=== PATIENT | male | born 1935 | race Caucasian/White ===

== ENCOUNTER 2018-07-05 10:43 | Emergency (ER) | payer OTHER ==
--- OUTSIDE RECORDS SUMMARY | 2018-07-05 10:46 | XMS REPORT | Continuity of Care Document ---
:1935 Author Organization Interface Problems Problem Status Onset Classification Date Comments Source Date Reported CERIVAL Active 07/01/19 [facility] LAMIETOMY, POST 16 SURGERY UNK Active 07/01/19 [facility] 16 COPD - Chronic Active Problem 07/08/2015 [facility] obstructive pulmonary disease Coronary artery Active Problem 07/08/2015 [facility] disease Glaucoma Resolved Problem 07/08/2015 [facility] H/O asbestosis Active Problem 07/08/2015 [facility] Heart attack Resolved Problem 07/08/2015 [facility] Hypertension Active Problem 07/08/2015 [facility] Impaired Active Problem 07/08/2015 [facility] hearing Neck pain Active Problem 07/08/2015 [facility] PVD - Active Problem 07/08/2015 [facility] Peripheral vascular disease Skin cancer Resolved Problem 07/08/2015 [facility] SPINAL Active [facility] STENOSIS, CERVICAL REGION OTHER Active [facility] SPONDYLOSIS WITH MYELOPATHY, CERVI Medications Medication Details Route Status Patient Ordering Order Source Instructions Provider Date Neutra-Phos 1 pkt, Route: Inactive PO, Drug Form: 2015 PDR/REC, Dosing Weight 70.9, kg, Daily, Start date: 07/05/15 9:00:00 CDT, Duration: 30 day, Stop date: 08/03/15 9:00:00 CDTNotes: (Same as: Neutra-Phos) Each 1.25 gm pkt has 250mg phosphorous. Mix w/2.5oz water and stir. latanoprost 0.05 1 drp, Route: No Longer MG/ML Ophthalmic LEFT EYE, QPM, Active 2015 [facility] Solution Drug form: SOLN, Start date: 07/04/15 17:00:00 CDT, Duration: 30 day, Stop date: 08/02/15 17:00:00 CDTNotes: Keep refrigerated. (Same as:Xalatan) dorzolamide / 1 drp, Route: No Longer Timolol LEFT EYE, BID, Active 2015 [facility] Drug form: SOLN, Start date: 07/04/15 9:00:00 CDT, Duration: 30 day, Stop date: 08/02/15 17:00:00 CDTNotes: Same as Cosopt Brimonidine 1 drp, Route: No Longer tartrate 2 MG/ML LEFT EYE, BID, Active 2015 [facility] Ophthalmic Drug form: Solution SOLN, Start date: 07/04/15 9:00:00 CDT, Duration: 30 day, Stop date: 08/02/15 17:00:00 CDTNotes: (Same As: Alphagan) Simvastatin 10 mg, 1 tab, No Longer Route: PO, Drug Active 2015 form: TAB, Bedtime, Dosing Weight 70.909, kg, Start date: 07/03/15 21:00:00 CDT, Duration: 30 day, Stop date: 08/01/15 21:00:00 CDTNotes: (Same as: Zocor) latanoprost 0.05 1 drp, LEFT Active MG/ML Ophthalmic EYE, QPM, 0 2015 Solution Refill(s) Brimonidine 1 drp, LEFT Active tartrate 2 MG/ML EYE, BID, 0 2015 Ophthalmic Refill(s) Solution dorzolamide / 1 drop, LEFT Active Timolol EYE, BID, 0 2015 Refill(s) Ancef + Sodium 1 gm, Route: No Longer Chloride 0.9% IV IVPB, Q8H, Active 2015 100 mL Dosing Weight 70.909, kg, Start date: 07/03/15 15:00:00 CDT, Duration: 30 day, Stop date: 08/02/15 9:00:00 CDTNotes: (Same As: Judy Soto) MEDICATION WASTE Product Size: 1000 mg Product Wasted: ___ mg 24 HR tramadol 25 mg, 0.5 tab, No Longer hydrochloride 100 Route: PO, Drug Active 2015 MG Extended form: TAB, Release Tablet Q6H-02, Start date: 07/03/15 14:00:00 CDT, Duration: 30 day, Stop date: 08/02/15 8:00:00 CDTNotes: Not to exceed 400mg/day. (Same As: Ultram) Dexamethasone 4 mg, 1 mL, No Longer Route: IVP, Active 2015 Drug form: INJ, Q6H, Dosing Weight 70.909, kg, Start date: 07/03/15 12:00:00 CDT, Duration: 30 day, Stop date: 08/02/15 6:00:00 CDTNotes: Concentration: 4mg/ml Labetalol 10 mg, Route: Inactive IV, ONCE, 2015 Dosing Weight 70.909, kg, Start date: 07/03/15 11:45:00 CDT, Stop date: 07/03/15 11:45:00 CDT famotidine (ANES) Route: IV, Drug Inactive form: INJ, 2015, Stop date: 07/03/15 11:23:00 CDT hydrocortisone Route: IV, Drug Inactive (ANES) form: [email or web address], Stop date: 07/03/15 9:38:00 CDT ondansetron Route: IV, Drug Inactive (ANES) form: [email or web address], Stop date: 07/03/15 9:38:00 CDT succinylcholine Route: IV, Drug Inactive (ANES) form: [email or web address], Stop date: 07/03/15 9:38:00 CDT hydromorphone Route: IV, Drug Inactive (ANES) form: [email or web address], Stop date: 07/03/15 9:33:00 CDT lidocaine (ANES) Route: IV, Drug Inactive form: [email or web address], Stop date: 07/03/15 9:33:00 CDT propofol (ANES) Route: IV, Drug Inactive form: [email or web address], Stop date: 07/03/15 9:33:00 CDT acetaminophen Route: IV, Drug Inactive MH (ANES) (ANES) form: [id number] Start date: 07/03/15 9:30:00 CDT, Stop date: 07/03/15 10:30:00 CDT ePHEDrine (ANES) Route: IV, Drug Inactive form: INJ, 2015 ONCE, Stop date: 07/03/15 9:04:00 CDT Famotidine 20 MG 20 mg, 1 tab, No Longer Oral Tablet Route: PO, Drug Active 2015 [Pepcid] form: TAB, Q12H, Dosing Weight 70.909, kg, Start date: 07/03/15 9:00:00 CDT, Duration: 30 day, Stop date: 08/01/15 21:00:00 CDTNotes: (Same as: Pepcid) Spiriva 18 microgram, 1 No Longer inhalation, Active 2015 Route: INHALATION, Drug form: CAP, Daily, Dosing Weight 70.909, kg, Start date: 07/03/15 9:00:00 CDT, Duration: 30 day, Stop date: 08/01/15 9:00:00 CDTNotes: (Same As: Spiriva). Lisinopril 10 mg, 1 tab, No Longer Route: PO, Drug Active 2015 form: TAB, Daily, Dosing Weight 70.909, kg, Start date: 07/03/15 9:00:00 CDT, Duration: 30 day, Stop date: 08/01/15 9:00:00 CDTNotes: (Same as: Prinivil, Zestril) Furosemide 40 MG 40 mg, 1 tab, No Longer Oral Tablet Route: PO, Drug Active 2015 form: TAB, Daily, Dosing Weight 70.909, kg, Start date: 07/03/15 9:00:00 CDT, Duration: 30 day, Stop date: 08/01/15 9:00:00 CDTNotes: (Same as: Lasix) May cause GI upset. Give with food or milk. albuterol (ANES) Route: IV, Drug Inactive form: AERO/A, 2015 ONCE, Stop date: 07/03/15 8:57:00 CDT remifentanil Route: IV, Drug Inactive (ANES) (ANES) form: [id number] Start date: 07/03/15 8:50:00 CDT, Stop date: 07/03/15 9:50:00 CDT phenylephrine Route: IV, Drug Inactive (ANES) form: INJ, 2015 ONCE, Stop date: 07/03/15 8:50:00 CDT albumin human Route: IV, Drug Inactive (ANES) (ANES) form: [id number] Start date: 07/03/15 8:48:00 CDT, Stop date: 07/03/15 9:48:00 CDT ceFAZolin (ANES) Route: IV, Drug Inactive (ANES) form: 2015 Start date: 07/03/15 8:30:00 CDT, Stop date: 07/03/15 9:30:00 CDT Ventolin HFA 90 2 puff, Route: No Longer mcg/inh INHALER, Drug Active 2015 [facility] inhalation Form: AERO/A, aerosol with Dosing Weight adapter 70.909, kg, Q4H, PRN as needed for wheezing, Start date: 07/03/15 8:12:00 CDT, Duration: 30 day, Stop date: 08/02/15 8:11:00 CDTNotes: Same as: Ventolin HFA WASTE: Aerosol - Return to Pharmacy Acetaminophen 325 2 tab, Route: No Longer MG / Hydrocodone PO, Drug Form: Active 2015 Bitartrate 5 MG TAB, Dosing Oral Tablet Weight 70.909, [[place] 5/325] kg, Q4H, PRN Pain Score 4-6, Start date: 07/03/15 8:10:00 CDT, Duration: 30 day, Stop date: 08/02/15 8:09:00 CDTNotes: (Same as: [place]on 325/5) Do not exceed 4gm/day of acetaminophen. Zofran 4 mg, 1 tab, No Longer Route: PO, Drug Active 2015 form: TAB, Q8H, Dosing Weight 70.909, kg, PRN Nausea, Start date: 07/03/15 8:09:00 CDT, Duration: 30 day, Stop date: 08/02/15 8:08:00 CDTNotes: (Same as: Zofran) Lactated Ringers Route: IV, Inactive Injection IV Total Volume: 2015 [facility] (ANES) (ANES) 1,000, Start date: 07/03/15 7:50:00 CDT, Stop date: 07/03/15 8:50:00 CDT Albuterol 0.833 3 mL, Route: Inactive MG/ML / NEB, Dosing 2015 [facility] Ipratropium Weight 70.909, [place] 0.167 kg, ONCE, STAT, MG/ML Inhalant Start date: Solution 07/03/15 7:07:00 CDT, Stop date: 07/03/15 7:07:00 CDT Glucose 50 MG/ML 1,000 mL, Rate: Inactive / Sodium Chloride 25 ml/hr, 2015 [facility] 0.154 MEQ/ML Infuse over: 40 Injectable hr, Route: IV, Solution Dosing Weight 70.909 kg, Total Volume: 1,000, Start date: 07/03/15 7:07:00 CDT, Duration: 30 day, Stop date: 08/02/15 7:06:00 CDT Sodium Chloride 1,000 mL, Rate: Inactive 0.154 MEQ/ML 25 ml/hr, 2015 [facility] Injectable Infuse over: 40 Solution hr, Route: IV, Dosing Weight 70.909 kg, Total Volume: 1,000, Start date: 07/03/15 7:07:00 CDT, Duration: 30 day, Stop date: 08/02/15 7:06:00 CDT Calcium Chloride 1,000 mL, Rate: Inactive 0.0014 MEQ/ML / 25 ml/hr, 2015 [facility] Potassium Infuse over: 40 Chloride 0.004 hr, Route: IV, MEQ/ML / Sodium Dosing Weight Chloride 0.103 70.909 kg, MEQ/ML / Sodium Total Volume: Lactate 0.028 1,000, Start MEQ/ML Injectable date: 07/03/15 Solution 7:07:00 CDT, Duration: 30 day, Stop date: 08/02/15 7:06:00 CDT Levalbuterol 0.63 mg, Route: No Longer NEB, Q20Min, Active 2015 [facility] Dosing Weight 70.909, kg, PRN Wheezing, Start date: 07/02/15 19:58:00 CDT, Duration: 4 doses or times, Stop date: Limited # of times 200 ACTUAT 2 puff, Route: No Longer Albuterol 0.09 INHALER, Dosing Active 2015 [facility] MG/ACTUAT Metered Weight 70.909, Dose Inhaler kg, Q5Min, PRN Wheezing, Start date: 07/02/15 19:58:00 CDT, Duration: 4 doses or times, Stop date: Limited # of times Ondansetron 4 mg, Route: No Longer IVP, ONCE, Active 2015 [facility] Dosing Weight 70.909, kg, PRN Nausea & Vomiting, Start date: 07/02/15 19:58:00 CDT Flumazenil 0.2 mg, Route: No Longer IVP, PRN, Active 2015 [facility] Dosing Weight 70.909, kg, PRN Benzodiazepine Reversal, Initial dose, Start date: 07/02/15 19:58:00 CDT, Duration: 30 day, Stop date: 08/01/15 19:57:00 CDT Hydromorphone 0.5 mg, Route: No Longer IVP, Q5Min, Active 2015 [facility] Dosing Weight 70.909, kg, PRN Pain Score 7-10, Start date: 07/02/15 19:58:00 CDT, Duration: 4 doses or times, Stop date: Limited # of times Fentanyl 50 microgram, No Longer Route: IVP, Active 2015 [facility] Q5Min, Dosing Weight 70.909, kg, PRN Pain Score 7-10, Start date: 07/02/15 19:58:00 CDT, Duration: 2 doses or times, Stop date: Limited # of times Oxycodone 10 mg, Route: No Longer PO, Drug form: Active 2015 [facility] TAB, Q4H, Dosing Weight 70.909, kg, PRN Pain Score 7-10, Start date: 07/02/15 19:58:00 CDT, Duration: 30 day, Stop date: 08/01/15 19:57:00 CDT Acetaminophen 1,000 mg, No Longer Route: IVPB, Active 2015 [facility] Drug form: INJ, ONCE, Dosing Weight 70.909, kg, PRN Pain Score 1-3, Start date: 07/02/15 19:58:00 CDT, Duration: 1 doses or times, Stop date: Limited # of times Sodium Chloride 1,000 mL, Rate: No Longer 0.154 MEQ/ML 125 ml/hr, Active 2015 [facility] Injectable Infuse over: 8 Solution hr, Route: IV, Dosing Weight 70.909 kg, Total Volume: 1,000, Start date: 07/02/15 19:58:00 CDT, Duration: 30 day, Stop date: 08/01/15 19:57:00 CDT Glucose 50 MG/ML 1,000 mL, Rate: No Longer / Sodium Chloride 125 ml/hr, Active 2015 [facility] 0.154 MEQ/ML Infuse over: 8 Injectable hr, Route: IV, Solution Dosing Weight 70.909 kg, Total Volume: 1,000, Start date: 07/02/15 19:58:00 CDT, Duration: 30 day, Stop date: 08/01/15 19:57:00 CDT Calcium Chloride 1,000 mL, Rate: No Longer 0.0014 MEQ/ML / 125 ml/hr, Active 2015 [facility] Potassium Infuse over: 8 Chloride 0.004 hr, Route: IV, MEQ/ML / Sodium Dosing Weight Chloride 0.103 70.909 kg, MEQ/ML / Sodium Total Volume: Lactate 0.028 1,000, Start MEQ/ML Injectable date: 07/02/15 Solution 19:58:00 CDT, Duration: 30 day, Stop date: 08/01/15 19:57:00 CDT Naloxone 0.4 mg, Route: No Longer IVP, Q2MIN, Active 2015 Dosing Weight 70.909, kg, PRN Narcotic Reversal, Start date: 07/02/15 19:58:00 CDT, Duration: 8 doses or times, Stop date: Limited # of times Ventolin HFA 90 2 puff, Active mcg/inh INHALER, Q4H, 2015 inhalation PRN wheezing, aerosol with coughing, or adapter shortness of breath, # 8 gm, 1 Refill(s) lisinopril 10 mg 10 mg=1 tab, Active oral tablet PO, Daily, # 30 2015 tab, 0 Refill(s) Spiriva 18 microgram, Active INHALATION, 2015 Daily, # 30 ea, 0 Refill(s) Diclofenac 50 mg, PO, PRN, No Longer 0 Refill(s) Active 2015 Furosemide 40 MG 40 mg=1 tab, Active Oral Tablet PO, Daily, # 30 2015 tab, 0 Refill(s) simvastatin 10 mg 10 mg=1 tab, Active oral tablet PO, Bedtime, # 2015 30 tab, 0 Refill(s) clopidogrel 75 mg 75 mg=1 tab, No Longer oral tablet PO, Daily, # 30 Active 2015 [facility] tab, 0 Refill(s) Allergies, Adverse Reactions, Alerts Substance Category Reaction Severity Reaction Status Date Comments Source type Reported Immunizations Immunization Date Given Site Status Last Updated Comments Source Results Order Name Results Value Reference Date Interpretation Comments Source Range CHEM PANEL Phosphorus 2.2 mg/dL 2.5 - 4.5 07/03 [facility] CHEM PANEL Magnesium 1.8 mg/dL 1.8 - 2.4 07/03 Lvl [facility] CHEM PANEL eGFR 83 07/03 Result Comment: The eGFR is calculated using the CKD-EPI formula. In most young, healthy individuals the eGFR will be >90 mL/ min/1.73m2. The eGFR declines with age. An eGFR of 60-89 may be normal in mL/min/1. some populations, particularly the elderly, for whom the CKD-EPI formula has not been extensively validated. Use of the eGFR is not recommended in the following populations: [facility] 3m2 Individuals with unstable creatinine concentrations, including patients and those with serious co-morbid conditions. Patients with extremes in muscle mass or diet. The data above are obtained from the National Kidney Disease Education Program (NKDEP) which additionally recommends that when the eGFR is used in patients with extremes of body mass index for purposes of drug dosing, the eGFR should be multiplied by the estimated BMI. CHEM PANEL Calcium Lvl 7.9 mg/dL 8.5 - 10.5 07/03 [facility] CHEM PANEL CO2 26 meq/L 24 - 32 07/03 [facility] CHEM PANEL Glucose Lvl 136 mg/dL 70 - 99 07/03 /2015 [facility] CHEM PANEL BUN 13 mg/dL 7 - 22 07/03 /2015 [facility] CHEM PANEL Potassium 4.1 meq/L 3.5 - 5.1 07/03 [facility] Lvl /2015 [facility] CHEM PANEL Chloride Lvl 96 meq/L 95 - 109 07/03 /2015 [facility] CHEM PANEL Sodium Lvl 132 meq/L 135 - 145 07/03 /2015 [facility] CHEM PANEL Creatinine 0.83 mg/dL 0.50 - 07/03 [facility] Lvl 1.40 /2015 [facility] CHEM PANEL AGAP 14.1 meq/L 10.0 - 07/03 MH 20.0 /2015 [facility] HEMATOLOGY Lymphocytes 0.7 K/CMM 1.0 - 5.5 07/03 MH # /2015 [facility] HEMATOLOGY Segs-Bands # 11.6 K/CMM 1.5 - 8.1 07/03 [facility] HEMATOLOGY Monocytes 2.7 % 2.0 - 12.0 07/03 /2015 [facility] HEMATOLOGY Lymphocytes 5.4 % 20.0 - 07/03 MH 40.0 [facility] HEMATOLOGY Monocytes # 0.3 K/CMM 0.0 - 0.8 07/03 [facility] HEMATOLOGY Basophils 0.1 % 0.0 - 1.0 07/03 /2015 [facility] HEMATOLOGY Segs 91.8 % 45.0 - 07/03 MH 75.0 [facility] HEMATOLOGY Platelet 172 K/CMM 133 - 450 07/03 [facility] HEMATOLOGY MCHC 33.4 g/dL 32.0 - 07/03 MH 36.0 [facility] HEMATOLOGY MPV 9.8 fL 7.4 - 10.4 07/03 [facility] HEMATOLOGY MCV 92.4 fL 80.0 - 07/03 MH 94.0 [facility] HEMATOLOGY RDW 13.5 % 11.5 - 07/03 MH 14.5 /2015 [facility] HEMATOLOGY Hgb 11.7 g/dL 14.0 - 07/03 MH 18.0 [facility] HEMATOLOGY MCH 30.9 pg 27.0 - 07/03 MH 31.0 /2015 [facility] HEMATOLOGY RBC 3.79 M/CMM 4.70 - 07/03 MH 6.10 /2015 [facility] HEMATOLOGY Hct 35.0 % 42.0 - 07/03 MH 54.0 /2015 [facility] HEMATOLOGY WBC 12.6 K/CMM 3.7 - 10.4 07/03 [facility] Chest Chest 1view Study: Chest 1view DX 07/03 - 1view DX - [facility] Clinical Indication: Tube placement/removal/reposition Read by: Hossein Lockett MD Dictated Date/time: 07/04/15 07:47 Electronically Signed by: Hossein Lockett MD 07/04/15 07:48 FINAL REPORT Comparison: None FINDINGS: Changes of median sternotomy and coronary artery bypass graft are seen. Cardiac silhouette is normal in size. Aortic arch calcification is seen. Numerous calcified pleural plaques throughout b ilateral lungs are noted. There is no pleural effusion or pneumothorax. 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 IMPRESSION: No acute cardiopulmonary disease. Numerous calcified pleural plaques throughout the bilateral lungs. SL: [id number] BACTERIAL MRSA by PCR Negative 07/02 - [facility] (07/03/15 12:59 PM) Vital Signs Vital Sign Value Date Comments Source Respitory Rate 16 07/05/2015 [facility] Heart Rate 77 07/05/2015 [facility] Temperature Oral (F) 98.3 F 07/05/2015 [facility] Systolic (mm Hg) 145 07/05/2015 [facility] Diastolic (mm Hg) 86 07/05/2015 [facility] Respitory Rate 18 07/05/2015 [facility] Heart Rate 76 07/05/2015 [facility] Systolic (mm Hg) 163 07/05/2015 [facility] Diastolic (mm Hg) 82 07/05/2015 [facility] Temperature Oral (F) 97.7 F 07/05/2015 [facility] Heart Rate 85 07/05/2015 [facility] Temperature Oral (F) 97.2 F 07/05/2015 [facility] Systolic (mm Hg) 160 07/05/2015 [facility] Diastolic (mm Hg) 84 07/05/2015 [facility] Respitory Rate 16 07/05/2015 [facility] Weight 70.9 07/03/2015 [facility] Height 177.8 cm 07/02/2015 [facility] BMI Calculated 22.43 07/02/2015 [facility] Weight 70.909 07/02/2015 [facility] Encounters Location Location Encounter Encounter Reason Attending ADM DC Status Source Details Type Number For Provider Date Date Visit [facility] OBS [id number] Cristopher 07/02 07/04 Wesley Richter /2015 [facility] Patient t Hospital Procedures Procedure Code Date Perfomer Comments Source Appendectomy [id number] [facility] Cataract extraction [id number] [facility] and insertion of intraocular lens Coronary [id number] [facility] arteriogram Coronary artery [id number] [facility] bypass grafts x 4 Femoral artery [id number] [facility] bypass Tonsillectomy [id number] [facility]
--- OUTSIDE RECORDS SUMMARY | 2018-07-05 10:47 | XMS REPORT | Summary of Care ---
:1935 Author Organization [facility] Address [address], [place] [address]- Encounter HQ Lasha_elsie(FIN) [id number] Date(s): 07/03/15 - 07/05/15 [facility] [address] [place] [address]- [phone] Discharge Disposition: DC/DISC TO REHAB Attending Physician: Cristopher Lowe MD Admitting Physician: Cristopher Lowe MD Referring Physician: Cristopher Lowe MD Vital Signs Most recent to oldest 1 2 3 [Reference Range]: Height 177.8 cm (07/02/15 12:16 PM) Temperature Oral [96.4-99.1 98.3 DegF 97.7 DegF 97.2 DegF DegF] (07/05/15 8:26 AM) (07/05/15 5:50 AM) (07/04/15 11:54 PM) Blood Pressure [90-140/60-90 145/86 mmHg 163/82 mmHg 160/84 mmHg mmHg] *HI* *HI* *HI* (07/05/15 8:26 AM) (07/05/15 5:50 AM) (07/04/15 11:54 PM) Respiratory Rate [14-20 16 BRMIN 18 BRMIN 16 BRMIN BRMIN] (07/05/15 8:26 AM) (07/05/15 6:59 AM) (07/04/15 11:54 PM) Peripheral Pulse Rate 77 bpm 76 bpm 85 bpm [60-100 bpm] (07/05/15 8:26 AM) (07/05/15 5:50 AM) (07/04/15 11:54 PM) Weight 70.9 kg 70.909 kg (07/03/15 2:00 PM) (07/02/15 12:16 PM) Body Mass Index 22.43 m2 (07/02/15 12:16 PM) Problem List Condition Effective Dates Status Health Status Informant Back problem(Confirmed) Resolved COPD - Chronic obstructive pulmonary Active disease(Confirmed) Coronary artery disease(Confirmed) Active Glaucoma(Confirmed) Resolved H/O asbestosis(Confirmed) Active Heart attack(Confirmed) Resolved Hypertension(Confirmed) Active Impaired hearing(Confirmed) Active Neck pain(Confirmed) Active PVD - Peripheral vascular Active disease(Confirmed) Skin cancer(Confirmed) Resolved Allergies, Adverse Reactions, Alerts Substance Reaction Severity Status NKDA Active Medications acetaminophen (ANES) (ANES) Route: IV, Drug form: INJ, Start date: 07/03/15 9:30:00 CDT, Stop date: 10:30:00 CDT Start Date: 07/03/15 Stop Date: 07/03/15 Status: Completedalbumin human (ANES) (ANES) Route: IV, Drug form: INJ, Start date: 07/03/15 8:48:00 CDT, Stop date: 9:48:00 CDT Start Date: 07/03/15 Stop Date: 07/03/15 Status: Completedalbuterol (ANES) Route: IV, Drug form: AERO/A, ONCE, Stop date: 07/03/15 8:57:00 CDT Start Date: 07/03/15 Stop Date: 07/03/15 Status: Completedalbuterol-ipratropium 2.5-0.5 mg inhalation solution 3 mL, Route: NEB, Dosing Weight 70.909, kg, ONCE, STAT, Start date: 07/03/15 7: 07:00 CDT, Stop date:07/03/15 7:07:00 CDT Start Date: 07/03/15 Stop Date: 07/03/15 Status: DiscontinuedAncef + Sodium Chloride 0.9% IV 100 mL 1 gm, Route: IVPB, Q8H, Dosing Weight 70.909, kg, Start date: 07/03/15 15:00:00 CDT, Duration: 30 day, Stop date: 08/02/15 9:00:00 CDT Notes: (Same As: AncefPaulfzol) MEDICATION WASTE Product Size: 1000 mgProduct Wasted: ___ mg Start Date: 07/03/15 Stop Date: 07/05/15 Status: DiscontinuedANES acetaminophen 1,000 mg, Route: IVPB, Drug form: INJ, ONCE, Dosing Weight 70.909, kg, PRN Pain Score 1-3, Start date: 07/02/15 19:58:00 CDT, Duration: 1 doses or times, Stop date: Limited # of times Start Date: 07/02/15 Stop Date: 07/03/15 Status: DiscontinuedANES albuterol 90 mcg/inh inhalation aerosol 2 puff, Route: INHALER, Dosing Weight 70.909, kg, Q5Min, PRN Wheezing, Start date: 07/02/15 19:58:00CDT, Duration: 4 doses or times, Stop date: Limited # of times Start Date: 07/02/15 Stop Date: 07/03/15 Status: DiscontinuedANES albuterol 90 mcg/inh inhalation aerosol 2 puff, Route: INHALER, Dosing Weight 70.909, kg, ONCE, Start date: 07/02/15 19: 58:00 CDT, Stop date: 07/02/15 19:58:00 CDT, On arrival to PACU Start Date: 07/02/15 Stop Date: 07/03/15 Status: DiscontinuedANES fentaNYL 50 microgram, Route: IVP, Q5Min, Dosing Weight 70.909, kg, PRN Pain Score 7-10, Start date: 07/01/1618:58:00 CDT, Duration: 2 doses or times, Stop date: Limited # of times Start Date: 07/02/15 Stop Date: 07/03/15 Status: DiscontinuedANES fentaNYL 25 microgram, Route: IVP, Q5Min, Dosing Weight 70.909, kg, PRN Pain Score 4-6, Start date: 07/02/15 19:58:00 CDT, Duration: 4 doses or times, Stop date: Limited # of times Start Date: 07/02/15 Stop Date: 07/03/15 Status: DiscontinuedANES flumazenil 0.2 mg, Route: IVP, PRN, Dosing Weight 70.909, kg, PRN Benzodiazepine Reversal, Initial dose, Start date: 07/02/15 19:58:00 CDT, Duration: 30 day, Stop date: 19:57:00 CDT Start Date: 07/02/15 Stop Date: 07/03/15 Status: DiscontinuedANES HYDROmorphone 0.5 mg, Route: IVP, Q5Min, Dosing Weight 70.909, kg, PRN Pain Score 7-10, Start date: 07/02/15 19:58:00 CDT, Duration: 4 doses or times, Stop date: Limited # of times Start Date: 07/02/15 Stop Date: 07/03/15 Status: DiscontinuedANES levalbuterol 0.63 mg, Route: NEB, Q20Min, Dosing Weight 70.909, kg, PRN Wheezing, Start date : 07/02/15 19:58:00 CDT, Duration: 4 doses or times, Stop date: Limited # of times Start Date: 07/02/15 Stop Date: 07/03/15 Status: DiscontinuedANES naloxone 0.4 mg, Route: IVP, Q2MIN, Dosing Weight 70.909, kg, PRN Narcotic Reversal, Start date: 07/02/15 19:58:00 CDT, Duration: 8 doses or times, Stop date: Limited # of times Start Date: 07/02/15 Stop Date: 07/03/15 Status: DiscontinuedANES ondansetron 4 mg, Route: IVP, ONCE, Dosing Weight 70.909, kg, PRN Nausea & Vomiting, Start date: 07/02/15 19:58:00 CDT Start Date: 07/02/15 Stop Date: 07/03/15 Status: DiscontinuedANES oxyCODONE 10 mg, Route: PO, Drug form: TAB, Q4H, Dosing Weight 70.909, kg, PRN Pain Score 7-10, Start date: 07/02/15 19:58:00 CDT, Duration: 30 day, Stop date: 08/01/15 19:57:00 CDT Start Date: 07/02/15 Stop Date: 07/03/15 Status: DiscontinuedANES oxyCODONE 5 mg, Route: PO, Drug form: TAB, Q4H, Dosing Weight 70.909, kg, PRN Pain Score 4 -6, Start date: 07/02/15 19:58:00 CDT, Duration: 30 day, Stop date: 08/01/15 19: 57:00 CDT Start Date: 07/02/15 Stop Date: 07/03/15 Status: Discontinuedbrimonidine ophthalmic 0.2% solution 1 drp, LEFT EYE, BID, 0 Refill(s) Start Date: 07/03/15 Status: Orderedbrimonidine ophthalmic 0.2% solution 1 drp, Route: LEFT EYE, BID, Drug form: SOLN, Start date: 07/04/15 9:00:00 CDT, Duration: 30 day, Stop date: 08/02/15 17:00:00 CDT Notes: (Same As: Alphagan) Start Date: 07/04/15 Stop Date: 07/05/15 Status: DiscontinuedceFAZolin (ANES) (ANES) Route: IV, Drug form: INJ, Start date: 07/03/15 8:30:00 CDT, Stop date: 9:30:00 CDT Start Date: 07/03/15 Stop Date: 07/03/15 Status: Completedclopidogrel 75 mg oral tablet 75 mg=1 tab, PO, Daily, # 30 tab, 0 Refill(s) Start Date: 07/02/15 Stop Date: 07/05/15 Status: Discontinueddexamethasone 4 mg, 1 mL, Route: IVP, Drug form: INJ, Q6H, Dosing Weight 70.909, kg, Start date: 07/03/15 12:00:00CDT, Duration: 30 day, Stop date: 08/02/15 6:00:00 CDT Notes: Concentration: 4mg/ml Start Date: 07/03/15 Stop Date: 07/05/15 Status: DiscontinuedDextrose 5% with 0.9% NaCl IV 1000 mL 1,000 mL, Rate: 25 ml/hr, Infuse over: 40 hr, Route: IV, Dosing Weight 70.909 kg , Total Volume: 1,000, Start date: 07/03/15 7:07:00 CDT, Duration: 30 day, Stop date: 08/02/15 7:06:00 CDT Start Date: 07/03/15 Stop Date: 07/03/15 Status: DiscontinuedDextrose 5% with 0.9% NaCl IV 1000 mL 1,000 mL, Rate: 125 ml/hr, Infuse over: 8 hr, Route: IV, Dosing Weight 70.909 kg , Total Volume: 1,000, Start date: 07/02/15 19:58:00 CDT, Duration: 30 day, Stop date: 08/01/15 19:57:00 CDT Start Date: 07/02/15 Stop Date: 07/03/15 Status: Discontinueddiclofenac 50 mg, PO, PRN, 0 Refill(s) Start Date: 07/02/15 Stop Date: 07/05/15 Status: Discontinueddorzolamide-timolol ophthalmic 1 drp, Route: LEFT EYE, BID, Drug form: SOLN, Start date: 07/04/15 9:00:00 CDT, Duration: 30 day, Stop date: 08/02/15 17:00:00 CDT Notes: Same as Cosopt Start Date: 07/04/15 Stop Date: 07/05/15 Status: Discontinueddorzolamide-timolol ophthalmic 1 drop, LEFT EYE, BID, 0 Refill(s) Start Date: 07/03/15 Status: OrderedePHEDrine (ANES) Route: IV, Drug form: INJ, ONCE, Stop date: 07/03/15 9:04:00 CDT Start Date: 07/03/15 Stop Date: 07/03/15 Status: Completedfamotidine (ANES) Route: IV, Drug form: INJ, ONCE, Stop date: 07/03/15 11:23:00 CDT Start Date: 07/03/15 Stop Date: 07/03/15 Status: Completedfurosemide 40 mg oral tablet 40 mg, 1 tab, Route: PO, Drug form: TAB, Daily, Dosing Weight 70.909, kg, Start date: 07/03/15 9:00:00 CDT, Duration: 30 day, Stop date: 08/01/15 9:00:00 CDT Notes: (Same as: Lasix) May cause GI upset. Give with food or milk. Start Date: 07/03/15 Stop Date: 07/05/15 Status: Discontinuedfurosemide 40 mg oral tablet 40 mg=1 tab, PO, Daily, # 30 tab, 0 Refill(s) Start Date: 07/02/15 Status: Orderedhydrocortisone (ANES) Route: IV, Drug form: INJ, ONCE, Stop date: 07/03/15 9:38:00 CDT Start Date: 07/03/15 Stop Date: 07/03/15 Status: Completedhydromorphone (ANES) Route: IV, Drug form: INJ, ONCE, Stop date: 07/03/15 9:33:00 CDT Start Date: 07/03/15 Stop Date: 07/03/15 Status: Completedlabetalol 10 mg, Route: IV, ONCE, Dosing Weight 70.909, kg, Start date: 07/03/15 11:45:00 CDT, Stop date: 07/03/15 11:45:00 CDT Start Date: 07/03/15 Stop Date: 07/03/15 Status: CompletedLactated Ringers Injection IV (ANES) (ANES) Route: IV, Total Volume: 1,000, Start date: 07/03/15 7:50:00 CDT, Stop date: 8:50:00 CDT Start Date: 07/03/15 Stop Date: 07/03/15 Status: CompletedLactated Ringers Injection IV 1000 mL 1,000 mL, Rate: 25 ml/hr, Infuse over: 40 hr, Route: IV, Dosing Weight 70.909 kg , Total Volume: 1,000, Start date: 07/03/15 7:07:00 CDT, Duration: 30 day, Stop date: 08/02/15 7:06:00 CDT Start Date: 07/03/15 Stop Date: 07/03/15 Status: DiscontinuedLactated Ringers Injection IV 1000 mL 1,000 mL, Rate: 125 ml/hr, Infuse over: 8 hr, Route: IV, Dosing Weight 70.909 kg , Total Volume: 1,000, Start date: 07/02/15 19:58:00 CDT, Duration: 30 day, Stop date: 08/01/15 19:57:00 CDT Start Date: 07/02/15 Stop Date: 07/03/15 Status: Discontinuedlatanoprost ophthalmic 0.005% solution 1 drp, LEFT EYE, QPM, 0 Refill(s) Start Date: 07/03/15 Status: Orderedlatanoprost ophthalmic 0.005% solution 1 drp, Route: LEFT EYE, QPM, Drug form: SOLN, Start date: 07/04/15 17:00:00 CDT , Duration: 30 day, Stop date: 08/02/15 17:00:00 CDT Notes: Keep refrigerated. (Same as:Xalatan) Start Date: 07/04/15 Stop Date: 07/05/15 Status: Discontinuedlidocaine (ANES) Route: IV, Drug form: INJ, ONCE, Stop date: 07/03/15 9:33:00 CDT Start Date: 07/03/15 Stop Date: 07/03/15 Status: Completedlisinopril 10 mg, 1 tab, Route: PO, Drug form: TAB, Daily, Dosing Weight 70.909, kg, Start date: 07/03/15 9:00:00 CDT, Duration: 30 day, Stop date: 08/01/15 9:00:00 CDT Notes: (Same as: Prinivil, Zestril) Start Date: 07/03/15 Stop Date: 07/05/15 Status: Discontinuedlisinopril 10 mg oral tablet 10 mg=1 tab, PO, Daily, # 30 tab, 0 Refill(s) Start Date: 07/02/15 Status: OrderedNeutra-Phos 1 pkt, Route: PO, Drug Form: PDR/REC, Dosing Weight 70.9, kg, Daily, Start date : 07/05/15 9:00:00 CDT, Duration: 30 day, Stop date: 08/03/15 9:00:00 CDT Notes: (Same as: Neutra-Phos) Each 1.25 gm pkt has 250mg phosphorous. Mix w/ 2.5oz water and stir. Start Date: 07/05/15 Stop Date: 07/05/15 Status: DiscontinuedNorco 5/325 oral tablet 2 tab, Route: PO, Drug Form: TAB, Dosing Weight 70.909, kg, Q4H, PRN Pain Score 4-6, Start date: 07/03/15 8:10:00 CDT, Duration: 30 day, Stop date: 08/02/15 8: 09:00 CDT Notes: (Same as: [place] 325/5) Do not exceed 4gm/day of acetaminophen. Start Date: 07/03/15 Stop Date: 07/05/15 Status: Discontinuedondansetron (ANES) Route: IV, Drug form: INJ, ONCE, Stop date: 07/03/15 9:38:00 CDT Start Date: 07/03/15 Stop Date: 07/03/15 Status: CompletedPepcid 20 mg oral tablet 20 mg, 1 tab, Route: PO, Drug form: TAB, Q12H, Dosing Weight 70.909, kg, Start date: 07/03/15 9:00:00 CDT, Duration: 30 day, Stop date: 08/01/15 21:00:00 CDT Notes: (Same as: Pepcid) Start Date: 07/03/15 Stop Date: 07/05/15 Status: Discontinuedphenylephrine (ANES) Route: IV, Drug form: INJ, ONCE, Stop date: 07/03/15 8:50:00 CDT Start Date: 07/03/15 Stop Date: 07/03/15 Status: Completedpropofol (ANES) Route: IV, Drug form: INJ, ONCE, Stop date: 07/03/15 9:33:00 CDT Start Date: 07/03/15 Stop Date: 07/03/15 Status: Completedremifentanil (ANES) (ANES) Route: IV, Drug form: INJ, Start date: 07/03/15 8:50:00 CDT, Stop date: 9:50:00 CDT Start Date: 07/03/15 Stop Date: 07/03/15 Status: Completedsimvastatin 10 mg, 1 tab, Route: PO, Drug form: TAB, Bedtime, Dosing Weight 70.909, kg, Start date: 07/03/15 21:00:00 CDT, Duration: 30 day, Stop date: 08/01/15 21:00: 00 CDT Notes: (Same as: Zocor) Start Date: 07/03/15 Stop Date: 07/05/15 Status: Discontinuedsimvastatin 10 mg oral tablet 10 mg=1 tab, PO, Bedtime, # 30 tab, 0 Refill(s) Start Date: 07/02/15 Status: OrderedSodium Chloride 0.9% IV 1000 mL 1,000 mL, Rate: 25 ml/hr, Infuse over: 40 hr, Route: IV, Dosing Weight 70.909 kg , Total Volume: 1,000, Start date: 07/03/15 7:07:00 CDT, Duration: 30 day, Stop date: 08/02/15 7:06:00 CDT Start Date: 07/03/15 Stop Date: 07/03/15 Status: DiscontinuedSodium Chloride 0.9% IV 1000 mL 1,000 mL, Rate: 125 ml/hr, Infuse over: 8 hr, Route: IV, Dosing Weight 70.909 kg , Total Volume: 1,000, Start date: 07/02/15 19:58:00 CDT, Duration: 30 day, Stop date: 08/01/15 19:57:00 CDT Start Date: 07/02/15 Stop Date: 07/03/15 Status: DiscontinuedSpiriva 18 microgram, 1 inhalation, Route: INHALATION, Drug form: CAP, Daily, Dosing Weight 70.909, kg, Start date: 07/03/15 9:00:00 CDT, Duration: 30 day, Stop date : 08/01/15 9:00:00 CDT Notes: (Same As: Spiriva). Start Date: 07/03/15 Stop Date: 07/05/15 Status: DiscontinuedSpiriva 18 microgram, INHALATION, Daily, # 30 ea, 0 Refill(s) Start Date: 07/02/15 Status: Orderedsuccinylcholine (ANES) Route: IV, Drug form: INJ, ONCE, Stop date: 07/03/15 9:38:00 CDT Start Date: 07/03/15 Stop Date: 07/03/15 Status: Completedtramadol 25 mg, 0.5 tab, Route: PO, Drug form: TAB, Q6H-02, Start date: 07/03/15 14:00: 00 CDT, Duration: 30 day, Stop date: 08/02/15 8:00:00 CDT Notes: Not to exceed 400mg/day. (Same As: Ultram) Start Date: 07/03/15 Stop Date: 07/05/15 Status: DiscontinuedVentolin HFA 90 mcg/inh inhalation aerosol with adapter 2 puff, INHALER, Q4H, PRN wheezing, coughing, or shortness of breath, # 8 gm, 1 Refill(s) Start Date: 07/02/15 Status: OrderedVentolin HFA 90 mcg/inh inhalation aerosol with adapter 2 puff, Route: INHALER, Drug Form: AERO/A, Dosing Weight 70.909, kg, Q4H, PRN as needed for wheezing, Start date: 07/03/15 8:12:00 CDT, Duration: 30 day, Stop date: 08/02/15 8:11:00 CDT Notes: Same as: Ventolin HFAWASTE: Aerosol - Return to Pharmacy Start Date: 07/03/15 Stop Date: 07/05/15 Status: DiscontinuedZofran 4 mg, 1 tab, Route: PO, Drug form: TAB, Q8H, Dosing Weight 70.909, kg, PRN Nausea, Start date: 07/03/15 8:09:00 CDT, Duration: 30 day, Stop date: 08/02/15 8:08:00 CDT Notes: (Same as: Zofran) Start Date: 07/03/15 Stop Date: 07/05/15 Status: Discontinued Results ELECTROLYTES Most recent to oldest [Reference Range]: 1 Sodium Lvl [135-145 mEq/L] 132 mEq/L *LOW* (07/04/15 5:55 AM) Potassium Lvl [3.5-5.1 mEq/L] 4.1 mEq/L (07/04/15 5:55 AM) Chloride Lvl [95-109 mEq/L] 96 mEq/L (07/04/15 5:55 AM) CO2 [24-32 mEq/L] 26 mEq/L (07/04/15 5:55 AM) AGAP [10.0-20.0 mEq/L] 14.1 mEq/L (07/04/15 5:55 AM) CHEM PANEL Most recent to oldest [Reference Range]: 1 Creatinine Lvl [0.50-1.40 mg/dL] 0.83 mg/dL (07/04/15 5:55 AM) eGFR 83 mL/min/1.73m2 1 *NA* (07/04/15 5:55 AM) BUN [7-22 mg/dL] 13 mg/dL (07/04/15 5:55 AM) Glucose Lvl [70-99 mg/dL] 136 mg/dL *HI* (07/04/15 5:55 AM) Calcium Lvl [8.5-10.5 mg/dL] 7.9 mg/dL *LOW* (07/04/15 5:55 AM) Phosphorus [2.5-4.5 mg/dL] 2.2 mg/dL *LOW* (07/04/15 5:55 AM) Magnesium Lvl [1.8-2.4 mg/dL] 1.8 mg/dL (07/04/15 5:55 AM) 1Result Comment: The eGFR is calculated using the CKD-EPI formula. In most young , healthy individualsthe eGFR will be >90 mL/min/1.73m2. The eGFR declines with age. An eGFR of 60-89 may be normal in some populations, particularly the elderly, for whom the CKD-EPI formula has not been extensively validated. Use of the eGFR is not recommended in the following populations: Individuals with unstable creatinine concentrations, including patients and those with serious co-morbid conditions. Patients with extremes in muscle mass or diet. The data above are obtained from the National Kidney Disease Education Program ( NKDEP) which additionally recommends that when the eGFR is used in patients with extremes of body mass index for purposesof drug dosing, the eGFR should be multiplied by the estimated BMI.HEMATOLOGY Most recent to oldest [Reference Range]: 1 WBC [3.7-10.4 K/CMM] 12.6 K/CMM *HI* (07/04/15 5:55 AM) RBC [4.70-6.10 M/CMM] 3.79 M/CMM *LOW* (07/04/15 5:55 AM) Hgb [14.0-18.0 g/dL] 11.7 g/dL *LOW* (07/04/15 5:55 AM) Hct [42.0-54.0 %] 35.0 % *LOW* (07/04/15 5:55 AM) MCV [80.0-94.0 fL] 92.4 fL (07/04/15 5:55 AM) MCH [27.0-31.0 pg] 30.9 pg (07/04/15 5:55 AM) MCHC [32.0-36.0 g/dL] 33.4 g/dL (07/04/15 5:55 AM) RDW [11.5-14.5 %] 13.5 % (07/04/15 5:55 AM) Platelet [133-450 K/CMM] 172 K/CMM (07/04/15 5:55 AM) MPV [7.4-10.4 fL] 9.8 fL (07/04/15 5:55 AM) Segs [45.0-75.0 %] 91.8 % *HI* (07/04/15 5:55 AM) Lymphocytes [20.0-40.0 %] 5.4 % *LOW* (07/04/15 5:55 AM) Monocytes [2.0-12.0 %] 2.7 % (07/04/15 5:55 AM) Basophils [0.0-1.0 %] 0.1 % (07/04/15 5:55 AM) Segs-Bands # [1.5-8.1 K/CMM] 11.6 K/CMM *HI* (07/04/15 5:55 AM) Lymphocytes # [1.0-5.5 K/CMM] 0.7 K/CMM *LOW* (07/04/15 5:55 AM) Monocytes # [0.0-0.8 K/CMM] 0.3 K/CMM (07/04/15 5:55 AM) BACTERIAL - SEROLOGY Most recent to oldest [Reference Range]: 1 MRSA by PCR Negative (07/03/15 12:59 PM) Immunizations No data available for this section Procedures Procedure Date Related Diagnosis Body Site Appendectomy Cataract extraction and insertion of intraocular lens Coronary arteriogram Coronary artery bypass grafts x 4 Femoral artery bypass Tonsillectomy Social History Social History Type Response Alcohol Current, Previous treatment: None. Smoking Status Current every day smoker; Type: Cigarettes; Tobacco use per day : 1; Ready to change: No; Concerns about tobacco use in household: No; Exposure to Tobacco Smoke None; Cigarette Smoking Last 365 Days Yes; Reg Smoking Cessation Counseling No Assessment and Plan Extracted from: Title: Clinical Document Author: Irineo Jett DO Date: 07/03/15 Chief complaint: post op cervicle spine decompression HPI: 80y.o male presents to ICU s/p cervicle spine decompression. He has been extubated and is on room air. Hemodynamically stable. has a history of abestosis and COPD. He does see a locker room clerk in the out patient but cannot remeber his name at this time.Presented to Dr lowe's office with difficulty with his legs and balance. 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, COPD, CASD, melanoma, HTN, PVD, dyslipidemia PSHx: CABG, resection of melanoma, stent in his lower extremity on the left PFHx: he was too young to remember what his parents from SocHx: quit tabacco two years ago with a prior 70pack year history Meds: albuterol, prednisone, spiriva, metoprolol, lisinopril, lasix, diclofenac , plavix, simvastatin, and ASA Allergies: nKDA ROS: all negative besides those stated in the HPI Physical Exam Vitals Tmp(F) Pulse BP RR SpO2 FIO2 07/02 17:00 ---- 94 130/84 17 97 --- 07/02 16:30 ---- 84 140/80 15 98 --- 07/02 16:00 97.7 83 142/75 14 100 21% 07/02 15:30 ---- 87 131/74 18 99 --- 07/02 15:02 ---- --- ----- -- 97 --- 24 Hr Tmax: 97.7F (36.50c) at 07/02 16:00 Vital Signs are the last 5 in the past 48 hour Gen: nAD HEENT: protecting airway, soft collar in place Neuro: no motor or sensory deficits in the upper or lower extremites Cardio: Reg, no murmurs Pulm: rales and no wheezing Abd: S/NT/ND Ext: no cyanosis or edema Derm: no rashes 24hr Labs 07/02 0935 POC A Source ART POC A Temp 37.0 POC A pH 7.27 L POC A PCO2 55 H POC A PO2 135 H POC A HCO3 25 POC A BE -2 POC A O2 Sat 99.0 POC A Hct 32.0 L POC A K 4.0 POC A Na 132 L POC A Ca Ion 1.11 POC A LA 0.4 L POC A Glu 121 H Impression 1. cervicle stenosis s/p posterior decompression POD#0 2. COPD nonexacebated 3. asbestosis 4. CAD h/o CABG 5. PVD with h/o stent 6. HTN 7. dyslipidemia Plan -ICU monitoring overnight -anticipate d/c in am -encourage IS -bronchodilator therapy -SCDs -post pain management and periop abx CCM time exclusive of procedures is 33 min
--- NOTE | 2018-07-05 11:35 | RAD REPORT ---
EXAM DESCRIPTION: RAD - Chest Single View - 07/05/2018 11:28 am CLINICAL HISTORY: COUGH Chest pain. COMPARISON: Chest Single View dated 07/21/2016; Chest Single View dated 11/19/2015; Chest Single View dated 07/08/2015; Chest Single View dated 07/06/2015 FINDINGS: Portable technique limits examination quality. Extensive pleural plaquing is present bilaterally, similar to comparative examination. The lungs are diffusely emphysematous. No focal infiltrate seen to indicate superimposed pneumonia. The heart is no rmal in size. Sternotomy wires noted.
[2018-07-05] MEDS ORDERED: NA CHLORIDE 0.9% 1,000 ML ONE (11:56)
[2018-07-05 12:10] LABS: Absolute Monocytes 0.8 K/uL (0.1-1.3); Absolute Neutrophil 6.2 K/uL (1.8-8.0); Basophils % 0.9 % (0-1.3); Eosinophils % 0.7 % (0-4.4); Hematocrit 40.7 % (39.6-49.0); Lymphocytes % 21.9 % (15.3-44.8); MPV 9.8 fL (7.6-11.3); RBC Red Blood Cell Count 4.62 M/uL (4.33-5.43)
[2018-07-05 12:23] LABS: Protime INR 0.88
[2018-07-05 12:31] LABS: ALT/SGPT 12 U/L (12-78); AST/SGOT 10 U/L (15-37); Albumin 3.1 g/dL (3.4-5.0); Alkaline Phosphatase 83 U/L (45-117); BUN Blood Urea Nitrogen 13 mg/dL (7-18); Bicarbonate 34 mmol/L (21-32); Bilirubin Direct 0.2 mg/dL (0-0.2); Bilirubin Total 0.8 mg/dL (0.2-1.0); Glucose Level 85 mg/dL (74-106); Lipase 139 U/L (73-393); NT PRO-BNP 625 pg/mL (<450); Potassium 3.1 mmol/L (3.5-5.1); Protein, Total 6.6 g/dL (6.4-8.2); Sodium Level 132 mmol/L (136-145); Troponin (Emerg Dept Use Only) < 0.02 ng/mL (0.0-0.045)
--- NOTE | 2018-07-05 12:56 | ER ---
Nurse's Notes [facility] Name: Rosa Isela Zavala Age: 83 yrs Sex: Male : 1935 Arrival Date: 07/05/2018 Time: 10:50 Bed 2 Private MD: Diagnosis: Hypo-osmolality and hyponatremia;Hypokalemia;Chronic obstructive pulmonary disease, unspecified Presentation: 07/05 11:20 Presenting complaint: Patient states: [facility] for iw abnormal electrolytes and kidney function. Transition of care: patient was not received from another setting of care. Onset of symptoms was July 01, 2018. Risk Assessment: Do you want to hurt yourself or someone else? Patient reports no desire to harm self or others. Initial Sepsis Screen: Does the patient meet any 2 criteria? No. Patient's initial sepsis screen is negative. Does the patient have a suspected source of infection? No. Patient's initial sepsis screen is negative. Care prior to arrival: None. 11:20 Method Of Arrival: Wheelchair iw 11:20 Acuity: BEBO 3 iw Historical: - Allergies: 11:35 No Known Allergies; ph - PMHx: 11:35 CAD; COPD; spinal stenosis; ph - PSHx: 11:35 CABG; Disc surgery; ph - Immunization history:: Adult Immunizations unknown. - Social history:: Smoking status: Patient/guardian denies using tobacco. - Ebola Screening: : No symptoms or risks identified at this time. - Family history:: not pertinent. Screenin:37 Abuse screen: Denies threats or abuse. Denies injuries from another. Nutritional ph screening: No deficits noted. Tuberculosis screening: No symptoms or risk factors identified. Fall Risk None identified. Assessment: 11:36 General: Appears in no apparent distress. comfortable, slender, well groomed, Behavior ph is calm, cooperative, appropriate for age, Denies fever, feeling ill. Pain: Denies pain. Neuro: Level of Consciousness is awake, alert, obeys commands, Oriented to person, place, time, situation. Cardiovascular: Reports fatigue, lightheadedness, Denies chest pain, shortness of breath. Respiratory: Airway is patent Respiratory effort is even, unlabored, Respiratory pattern is regular, symmetrical, Denies cough, shortness of breath. GI: Reports constipation, Patient currently denies abdominal pain, diarrhea, nausea, vomiting. : No signs and/or symptoms were reported regarding the genitourinary system. Denies burning with urination, inability to void, urinary frequency. Derm: Skin is fragile, is thin, Skin is pink, warm \\T\\ dry. Musculoskeletal: Circulation, motion, and sensation intact. Range of motion: intact in all extremities. 12:15 Reassessment: Patient appears in no apparent distress at this time. Patient and/or ph family updated on plan of care and expected duration. Pain level reassessed. Patient is alert, oriented x 3, equal unlabored respirations, skin warm/dry/pink. Pt resting quietly, awaiting lab and radiology results, VSS, will continue to monitor. 13:31 Reassessment: Patient appears in no apparent distress at this time. Patient and/or ph family updated on plan of care and expected duration. Pain level reassessed. Patient is alert, oriented x 3, equal unlabored respirations, skin warm/dry/pink. D/C pending urine sample. 14:18 Reassessment: Patient appears in no apparent distress at this time. Patient and/or ph family updated on plan of care and expected duration. Pain level reassessed. Patient is alert, oriented x 3, equal unlabored respirations, skin warm/dry/pink. Pt drinking coffee tolerating well, VSS, awaiting urine sample before d/c, pt states, " Maybe after I drink a little more I can go.". 15:15 Reassessment: Patient appears in no apparent distress at this time. Patient and/or ph family updated on plan of care and expected duration. Pain level reassessed. Patient is alert, oriented x 3, equal unlabored respirations, skin warm/dry/pink. Pt d/c home w/ family, will follow up at [place] tuesday. Vital Signs: 11:33 BP 120 / 77; Pulse 65; Resp 18; Temp 97.3; Pulse Ox 96% on R/A; Weight 70.31 kg; Height ph 5 ft. 10 in. (177.80 cm); Pain 0/10; 12:16 BP 127 / 68; Pulse 60; Resp 18; Pulse Ox 97% on R/A; ph 14:39 BP 130 / 77 RA Supine (auto/reg); Pulse 59; Resp 16; Pulse Ox 97% ; ms 14:39 BP 150 / 77 RA Sitting (auto/reg); Pulse 63; Resp 18; Pulse Ox 96% ; ms 14:39 BP 155 / 75 RA Standing (auto/reg); Pulse 63; Resp 19; Pulse Ox 96% ; ms 11:33 Body Mass Index 22.24 (70.31 kg, 177.80 cm) ph ED Course: 10:50 Patient arrived in ED. mr 11:09 Aleksandr Tristan MD is Attending Physician. jacqui 11:13 Sole Connors, RN is Primary Nurse. ph 11:21 Triage completed. iw 11:29 XRAY Chest (1 view) In Process Unspecified. EDMS 11:35 EKG done, by line service technician. reviewed by Aleksandr Tristan MD. at1 11:35 Arm band placed on Patient placed in an exam room. ph 11:37 Patient has correct armband on for positive identification. Placed in gown. Bed in low ph position. Call light in reach. Side rails up X2. gambling monitor on. Pulse ox on. NIBP on. Door closed. Noise minimized. Warm blanket given. Head of bed elevated. 12:00 Inserted saline lock: 20 gauge in right antecubital area, using aseptic technique. ph 15:15 No provider procedures requiring assistance completed. IV discontinued, intact, ph bleeding controlled, No redness/swelling at site. Pressure dressing applied. Administered Medications: 12:01 Drug: NS 0.9% 1000 ml Route: IV; Rate: 125 ml/hr; Site: right antecubital; iw 13:57 Drug: Potassium Effervescent Tablet 50 mEq Route: PO; ph 14:53 Follow up: Response: No adverse reaction ph Outcome: 12:55 Discharge ordered by . jacqui 15:15 Patient left the ED. ph 15:15 Discharged to home via wheelchair, with family. ph 15:15 Condition: improved 15:15 Discharge instructions given to patient, family, Instructed on discharge instructions, follow up and referral plans. Demonstrated understanding of instructions, follow-up care. Signatures: Dispatcher [employer] Aleksandr Londono MD MD cha Rivera, Mary Judith Em, RN RN Etelvina Mathews Lauren Medrano, chemical lab supervisor EKG Tat1 Sole Connors, DIMAS RN ph
--- NOTE | 2018-07-05 12:56 | EDPHYS ---
Physician Documentation [facility] Name: Rosa Isela Zavala Age: 83 yrs Sex: Male : 1935 Arrival Date: 07/05/2018 Time: 10:50 Bed 2 Private MD: Aleksandr Ren HPI: 07/05 11:53 This 83 yrs old Male presents to ER via Wheelchair with complaints of jacqui Abnormal Lab Results. 11:53 . Severity of symptoms: At their worst the symptoms were. jacqui Historical: - Allergies: 11:35 No Known Allergies; ph - PMHx: 11:35 CAD; COPD; spinal stenosis; ph - PSHx: 11:35 CABG; Disc surgery; ph - Immunization history:: Adult Immunizations unknown. - Social history:: Smoking status: Patient/guardian denies using tobacco. - Ebola Screening: : No symptoms or risks identified at this time. - Family history:: not pertinent. ROS: 11:53 Constitutional: Negative for fever, chills, and weight loss, Eyes: Negative for injury, jacqui pain, redness, and discharge, ENT: Negative for injury, pain, and discharge, Neck: Negative for injury, pain, and swelling, Cardiovascular: Negative for chest pain, palpitations, and edema, Respiratory: Negative for shortness of breath, cough, wheezing, and pleuritic chest pain, Back: Negative for injury and pain, : Negative for injury, bleeding, discharge, and swelling, MS/Extremity: Negative for injury and deformity, Skin: Negative for injury, rash, and discoloration, Neuro: Negative for headache, weakness, numbness, tingling, and seizure, Psych: Negative for depression, anxiety, suicide ideation, homicidal ideation, and hallucinations, Allergy/Immunology: Negative for hives, rash, and allergies, Endocrine: Negative for neck swelling, polydipsia, polyuria, polyphagia, and marked weight changes, Hematologic/Lymphatic: Negative for swollen nodes, abnormal bleeding, and unusual bruising. 11:53 Abdomen/GI: Positive for abdominal pain. Exam: 11:53 Constitutional: This is a well developed, well nourished patient who is awake, alert, jacqui and in no acute distress. Head/Face: Normocephalic, atraumatic. Eyes: Pupils equal round and reactive to light, extra-ocular motions intact. Lids and lashes normal. Conjunctiva and sclera are non-icteric and not injected. Cornea within normal limits. Periorbital areas with no swelling, redness, or edema. ENT: Nares patent. No nasal discharge, no septal abnormalities noted. Tympanic membranes are normal and external auditory canals are clear. Oropharynx with no redness, swelling, or masses, exudates, or evidence of obstruction, uvula midline. Mucous membranes moist. Neck: Trachea midline, no thyromegaly or masses palpated, and no cervical lymphadenopathy. Supple, full range of motion without nuchal rigidity, or vertebral point tenderness. No Meningismus. Chest/axilla: Normal chest wall appearance and motion. Nontender with no deformity. No lesions are appreciated. Cardiovascular: Regular rate and rhythm with a normal S1 and S2. No gallops, murmurs, or rubs. Normal PMI, no JVD. No pulse deficits. Respiratory: Lungs have equal breath sounds bilaterally, clear to auscultation and percussion. No rales, rhonchi or wheezes noted. No increased work of breathing, no retractions or nasal flaring. Abdomen/GI: Soft, non-tender, with normal bowel sounds. No distension or tympany. No guarding or rebound. No evidence of tenderness throughout. Back: No spinal tenderness. No costovertebral tenderness. Full range of motion. Male : Normal genitalia with no discharge or lesions. Skin: Warm, dry with normal turgor. Normal color with no rashes, no lesions, and no evidence of cellulitis. MS/ Extremity: Pulses equal, no cyanosis. Neurovascular intact. Full, normal range of motion. Neuro: Awake and alert, GCS 15, oriented to person, place, time, and situation. Cranial nerves II-XII grossly intact. Motor strength 5/5 in all extremities. Sensory grossly intact. Cerebellar exam normal. Normal gait. Psych: Awake, alert, with orientation to person, place and time. Behavior, mood, and affect are within normal limits. Vital Signs: 11:33 BP 120 / 77; Pulse 65; Resp 18; Temp 97.3; Pulse Ox 96% on R/A; Weight 70.31 kg; Height ph 5 ft. 10 in. (177.80 cm); Pain 0/10; 12:16 BP 127 / 68; Pulse 60; Resp 18; Pulse Ox 97% on R/A; ph 14:39 BP 130 / 77 RA Supine (auto/reg); Pulse 59; Resp 16; Pulse Ox 97% ; ms 14:39 BP 150 / 77 RA Sitting (auto/reg); Pulse 63; Resp 18; Pulse Ox 96% ; ms 14:39 BP 155 / 75 RA Standing (auto/reg); Pulse 63; Resp 19; Pulse Ox 96% ; ms 11:33 Body Mass Index 22.24 (70.31 kg, 177.80 cm) ph MDM: 11:09 Patient medically screened. [facility] 11:53 Data reviewed: vital signs, nurses notes, lab test result(s), EKG, radiologic studies, jacqui plain films. 07/05 11:12 Order name: Basic Metabolic Panel [facility] 07/05 11:12 Order name: CBC with Diff [facility] 07/05 11:12 Order name: LFT's; Complete Time: 12:51 [facility] 07/05 11:12 Order name: Magnesium; Complete Time: 12:51 [facility] 07/05 11:12 Order name: NT PRO-BNP; Complete Time: 12:51 [facility] 07/05 11:12 Order name: PT-INR; Complete Time: 12:51 [facility] 07/05 11:12 Order name: Troponin (emerg Dept Use Only); Complete Time: 12:51 [facility] 07/05 11:12 Order name: Lipase; Complete Time: 12:51 [facility] 07/05 11:12 Order name: Urine Culture [facility] 07/05 11:13 Order name: Basic Metabolic Panel; Complete Time: 12:51 [facility] 07/05 11:13 Order name: CBC with Automated Diff; Complete Time: 12:51 [facility] 07/05 11:31 Order name: Urine Osmolality [facility] 07/05 11:31 Order name: Urine Sodium Random [facility] 07/05 11:12 Order name: XRAY Chest (1 view); Complete Time: 12:51 [facility] 07/05 11:12 Order name: EKG; Complete Time: 11:13 [facility] 07/05 11:12 Order name: Cardiac monitoring; Complete Time: 11:39 [facility] 07/05 11:12 Order name: EKG - Nurse/Tech; Complete Time: 11:39 [facility] 07/05 11:12 Order name: IV Saline Lock; Complete Time: 12:01 [facility] 07/05 11:12 Order name: Labs collected and sent; Complete Time: 12:01 [facility] 07/05 11:12 Order name: O2 Per Protocol; Complete Time: 11:39 [facility] 07/05 11:12 Order name: O2 Sat Monitoring; Complete Time: 11:39 [facility] 07/05 11:12 Order name: Urine Dipstick-Ancillary (obtain specimen); Complete Time: 14:44 [facility] 07/05 11:31 Order name: Urine Potassium Random [facility] 07/05 12:55 Order name: Orthostatics; Complete Time: 14:44 [facility] 07/05 12:55 Order name: PO challenge; Complete Time: 13:59 [facility] Administered Medications: 12:01 Drug: NS 0.9% 1000 ml Route: IV; Rate: 125 ml/hr; Site: right antecubital; 13:57 Drug: Potassium Effervescent Tablet 50 mEq Route: PO; ph 14:53 Follow up: Response: No adverse reaction ph Disposition: 07/05/18 12:55 Discharged to Home. Impression: Hypo-osmolality and hyponatremia, Hypokalemia, Chronic obstructive pulmonary disease, unspecified. - Condition is Stable. - Discharge Instructions: Chronic Bronchitis, Potassium Content of Foods, Hyponatremia, Cough, Adult, [id number], Hyponatremia, [id number], Hypokalemia. - Medication Reconciliation Form, Thank You Letter, Antibiotic Education, Prescription Opioid Use form. - Follow up: Private Physician; When: 1 - 2 days; Reason: Recheck today's complaints, Continuance of care, Re-evaluation by your physician. - Problem is new. - Symptoms have improved. Signatures: Dispatcher [employer] EDVT Aleksandr Tristan MD MD cha Williams, Irene, DIMAS RN Sole Connors RN RN ph Corrections: (The following items were deleted from the chart) 15:15 12:55 07/05/2018 12:55 Discharged to Home. Impression: Hypo-osmolality and ph hyponatremia; Hypokalemia; Chronic obstructive pulmonary disease, unspecified. Condition is Stable. Discharge Instructions: Chronic Bronchitis, Potassium Content of Foods, Hyponatremia, Cough, Adult, [id number], Hyponatremia, [id number], Hypokalemia. Forms are Medication Reconciliation Form, Thank You Letter, Antibiotic Education, Prescription Opioid Use. Follow up: Private Physician; When: 1 - 2 days; Reason: Recheck today's complaints, Continuance of care, Re-evaluation by your physician. Problem is new. Symptoms have improved. jacqui
[2018-07-05] MEDS ORDERED: POTASSIUM 25 MEQ EFFERV TAB ONE (13:27)
[2018-07-05 15:27] VITALS: TEMP 97.3
[2018-07-05 15:31] VITALS: BP 155/75; O2SAT 96
--- NOTE | 2018-07-06 11:34 | EKG ---
Test Date: 2018-07-05 Test Time: 11:19:52 Topography Technician: MELANY MEASUREMENT RESULTS: Intervals: Rate: 61 AL: 170 QRSD: 108 QT: 436 QTc: 438 [place]: P: 58 AL: 170 QRS: -7 T: 43 INTERPRETIVE STATEMENTS: Sinus rhythm with frequent premature ventricular complexes Low voltage QRS Nonspecific T wave abnormality Abnormal ECG Compared to ECG 07/21/2016 16:58:40 Ventricular premature complex(es) now present T-wave abnormality now present Myocardial infarct finding no longer present Electronically Signed On 07-06-18 07:38:05 CDT by Salvador Church
== END 2018-07-05 15:15 | disposition home or self-care (01) ==
LOC: ER 10:43
DX: E87.1 Hypo-osmolality and hyponatremia (principal); E87.6 Hypokalemia; J44.9 Chronic obstructive pulmonary disease, unspecified; I25.10 Atherosclerotic heart disease of native coronary artery without angina pectoris
CPT/HCPCS: 93005; 87088; 85025; 80048; 36415; 83735; 84132; 85610; 84300; 80076; 84484; 83690; 83880; 83935; 71045; 99284; J7030; 87086

== ENCOUNTER 2018-09-01 19:47 | Emergency (ER) | payer OTHER ==
--- OUTSIDE RECORDS SUMMARY | 2018-09-01 19:49 | XMS REPORT | Continuity of Care Document ---
:1935 Author Organization [facility] Care Team Providers Name Role Phone [facility] Unavailable Unavailable Problems Problem Status Onset Classification Date Comments Source Date Reported UNK Active 07/01/19 [facility] CERIVAL Active 07/01/19 [facility] LAMIETOMY, POST 16 SURGERY COPD - Chronic Active Problem 07/08/2015 [facility] obstructive pulmonary disease Coronary artery Active Problem 07/08/2015 [facility] disease Glaucoma Resolved Problem 07/08/2015 [facility] H/O asbestosis Active Problem 07/08/2015 [facility] Heart attack Resolved Problem 07/08/2015 [facility] Hypertension Active Problem 07/08/2015 [facility] Impaired Active Problem 07/08/2015 [facility] hearing Neck pain Active Problem 07/08/2015 [facility] PVD - Active Problem 07/08/2015 [facility] Peripheral vascular disease Skin cancer Resolved Problem 07/08/2015 [facility] SPINAL Active [facility] STENOSIS, CERVICAL REGION OTHER Active [facility] SPONDYLOSIS WITH MYELOPATHY, CERVI Medications Medication [...] MG/ML Ophthalmic LEFT EYE, QPM, Active 2015 [facility] form: SOLN, Start date: 07/04/15 17:00:00 CDT, Duration: 30 day, Stop date: 08/02/15 17:00:00 CDTNotes: Keep refrigerated. (Same as:Xalatan) dorzolamide / 1 drp, Route: No Longer Timolol LEFT EYE, BID, Active 2015 [facility] Drug form: SOLN, Start date: 07/04/15 9:00:00 CDT, Duration: 30 day, Stop date: 08/02/15 17:00:00 CDTNotes: Same as Cosopt Brimonidine 1 drp, Route: No Longer tartrate 2 MG/ML LEFT EYE, BID, Active 2015 Op[facility] Drug form: Solution SOLN, Start date: [...] famotidine (ANES) Route: IV, Drug Inactive form: INJ2015, Stop date: 07/03/15 11:23:00 CDT hydrocortisone Route: IV, Drug Inactive (ANES) form: INJ2015, Stop date: 07/03/15 9:38:00 CDT ondansetron Route: IV, Drug Inactive (ANES) form: INJ2015, Stop date: 07/03/15 9:38:00 CDT succinylcholine Route: IV, Drug Inactive (ANES) form: 2015, Stop date: 07/03/15 9:38:00 CDT hydromorphone Route: IV, Drug Inactive (ANES) form: INJ2015, Stop date: 07/03/15 9:33:00 CDT lidocaine (ANES) Route: IV, Drug Inactive form: INJ2015, Stop date: 07/03/15 9:33:00 CDT propofol (ANES) Route: IV, Drug Inactive MH form: INJ2015, Stop date: 07/03/15 9:33:00 CDT acetaminophen Route: IV, Drug Inactive MH (ANES) (ANES) form: INJ2015 Start date: 07/03/15 9:30:00 CDT, Stop date: 07/03/15 10:30:00 CDT ePHEDrine (ANES) Route: IV, Drug Inactive form: INJ2015 ONCE, Stop date: 07/03/15 9:04:00 CDT Famotidine [...] Route: IV, Drug Inactive (ANES) (ANES) form: , 2015 Start date: 07/03/15 8:50:00 CDT, Stop date: 07/03/15 9:50:00 CDT phenylephrine Route: IV, Drug Inactive (ANES) form: 2015 ONCE, Stop date: 07/03/15 8:50:00 CDT albumin human Route: IV, Drug Inactive (ANES) (ANES) form: 2015 Start date: 07/03/15 8:48:00 CDT, Stop date: 07/03/15 9:48:00 CDT ceFAZolin (ANES) Route: IV, Drug Inactive (ANES) form: 2015 Start date: 07/03/15 8:30:00 CDT, Stop date: 07/03/15 9:30:00 CDT Ventolin HFA 90 2 puff, Route: No Longer mcg/inh INHALER, Drug Active 2015 inhalation Form: AERO/A, aerosol with Dosing Weight adapter 70.909, kg, Q4H, PRN as needed for wheezing, Start date: 07/03/15 8:12:00 CDT, Duration: 30 day, Stop date: 08/02/15 8:11:00 CDTNotes: Same as: Ventolin HFA WASTE: Aerosol - Return to Pharmacy Acetaminophen 325 2 tab, Route: No Longer MG / Hydrocodone PO, Drug Form: Active 2015 Bitartrate 5 MG TAB, Dosing Oral Tablet Weight 70.909, [[place] 5/325] kg, Q4H, PRN Pain Score 4-6, Start date: 07/03/15 8:10:00 CDT, Duration: 30 day, Stop date: 08/02/15 8:09:00 CDTNotes: (Same as: [place] 325/5) Do not exceed 4gm/day of acetaminophen. Zofran 4 mg, 1 tab, No Longer Route: PO, Drug Active 2015 form: TAB, Q8H, Dosing Weight 70.909, kg, PRN Nausea, Start date: 07/03/15 8:09:00 CDT, Duration: 30 day, Stop date: 08/02/15 8:08:00 CDTNotes: (Same as: Ayanna) Lactated Ringers Route: IV, Inactive Injection IV Total Volume: 2015 [facility] (ANES) (ANES) 1,000, Start date: 07/03/15 7:50:00 CDT, Stop date: 07/03/15 8:50:00 CDT Albuterol 0.833 3 mL, Route: Inactive MG/ML / NEB, Dosing 2015 [facility] Ipratropium Weight 70.909, [place] 0.167 kg, ONCE, STAT, MG/ML Inhalant Start date: Solution 07/03/15 7:07:00 CDT, Stop date: 07/03/15 7:07:00 CDT Glucose 50 MG/ML 1,000 mL, Rate: Inactive / Sodium Chloride 25 ml/hr, 2015 [facility] 0.154 MEQ/ML Infuse over: 40 Injectable hr, Route: IV, Solution Dosing Weight 70.909 kg, Total Volume: 1,000, Start date: 07/03/15 7:07:00 CDT, Duration: 30 day, Stop date: 08/02/15 7:06:00 CDT Sodium Chloride 1,000 mL, Rate: Inactive 0.154 MEQ/ML 25 ml/hr, 2015 [facility] Injectable Infuse over: 40 Solution hr, Route: IV, Dosing Weight 70.909 kg, Total Volume: 1,000, Start date: 07/03/15 7:07:00 CDT, Duration: 30 day, Stop date: 08/02/15 7:06:00 CDT Calcium Chloride 1,000 mL, Rate: Inactive 0.0014 MEQ/ML / 25 ml/hr, 2015 [facility] Potassium Infuse over: 40 Chloride 0.004 hr, Route: IV, MEQ/ML / Sodium Dosing Weight Chloride 0.103 70.909 kg, MEQ/ML / Sodium Total Volume: Lactate 0.028 1,000, Start MEQ/ML Injectable date: 07/03/15 [facility] 7:07:00 CDT, Duration: 30 day, Stop date: 08/02/15 7:06:00 CDT Levalbuterol 0.63 mg, Route: No Longer 05/26/ NEB, Q20Min, [facility] 2015 [facility] Dosing Weight 70.909, kg, PRN Wheezing, Start date: 07/02/15 19:58:00 CDT, Duration: 4 doses or times, Stop date: Limited # of times 200 ACTUAT 2 puff, Route: No Longer Albuterol 0.09 INHALER, Dosing Active 2015 [facility] MG/ACTUAT Metered Weight 70.909, Dose Inhaler kg, Q5Min, PRN Wheezing, Start date: 07/02/15 19:58:00 CDT, Duration: 4 doses or times, Stop date: Limited # of times Ondansetron 4 mg, Route: No Longer IVP, ONCE, [facility] 2015 [facility] Dosing Weight 70.909, kg, PRN Nausea & Vomiting, Start date: 07/02/15 19:58:00 CDT Flumazenil 0.2 mg, Route: No Longer IVP, PRN, [facility] 2015 [facility] Dosing Weight 70.909, kg, PRN Benzodiazepine Reversal, Initial dose, Start date: 07/02/15 19:58:00 CDT, Duration: 30 day, Stop date: 08/01/15 19:57:00 CDT Hydromorphone 0.5 mg, Route: No Longer IVP, Q5Min, [facility] 2015 [facility] Dosing Weight 70.909, kg, PRN Pain Score 7-10, Start date: 07/02/15 19:58:00 CDT, Duration: 4 doses or times, Stop date: Limited # of times Fentanyl 50 microgram, No Longer Route: IVP, [facility] 2015 [facility] Q5Min, Dosing Weight 70.909, kg, PRN Pain Score 7-10, Start date: 07/02/15 19:58:00 CDT, Duration: 2 doses or times, Stop date: Limited # of times Oxycodone 10 mg, Route: No Longer PO, Drug form: [facility] 2015 [facility] TAB, Q4H, Dosing Weight 70.909, kg, PRN Pain Score 7-10, Start date: 07/02/15 19:58:00 CDT, Duration: 30 day, Stop date: 08/01/15 19:57:00 CDT Acetaminophen 1,000 mg, No Longer Route: IVPB, Active 2015 [facility] Drug form: INJ, ONCE, Dosing Weight 70.909, kg, PRN Pain Score 1-3, Start date: 07/02/15 19:58:00 CDT, Duration: 1 doses or times, Stop date: Limited # of times Sodium Chloride 1,000 mL, Rate: No Longer 0.154 MEQ/ML 125 ml/hr, Active 2015 [facility] Injectable Infuse over: 8 Solution hr, Route: IV, Dosing Weight 70.909 kg, Total Volume: 1,000, Start date: 07/02/15 19:58:00 CDT, Duration: 30 day, Stop date: 08/01/15 19:57:00 CDT Glucose 50 MG/ML 1,000 mL, Rate: No Longer / Sodium Chloride 125 ml/hr, Active 2015 [facility] 0.154 MEQ/ML Infuse over: 8 Injectable hr, Route: IV, Solution Dosing Weight 70.909 kg, Total Volume: 1,000, Start date: 07/02/15 19:58:00 CDT, Duration: 30 day, Stop date: 08/01/15 19:57:00 CDT Calcium Chloride 1,000 mL, Rate: No Longer 0.0014 MEQ/ML / 125 ml/hr, Active 2015 [facility] Potassium Infuse over: 8 Chloride 0.004 hr, Route: IV, MEQ/ML / Sodium Dosing Weight Chloride 0.103 70.909 kg, MEQ/ML / Sodium Total Volume: Lactate 0.028 1,000, Start MEQ/ML Injectable date: 07/02/15 Solution 19:58:00 CDT, Duration: 30 day, Stop date: 08/01/15 19:57:00 CDT Naloxone 0.4 mg, Route: No Longer IVP, Q2MIN, Active 2015 [facility] Dosing Weight 70.909, kg, PRN Narcotic Reversal, [...] tablet PO, Daily, # 30 Active 2015 [facility] tab, 0 Refill(s) Allergies, Adverse Reactions, Alerts No Known Medication Allergies Immunizations No Data Provided for This Section Results Order Name Results Value Reference Date Interpretation Comments Source Range CHEM PANEL Phosphorus 2.2 2.5 - 4.5 07/03 [facility] CHEM PANEL Magnesium 1.8 1.8 - 2.4 07/03 /2015 [facility] CHEM PANEL eGFR 83 07/03 Result Comment: The [facility] eGFR is calculated using the CKD-EPI formula. In most young, healthy individuals the eGFR will be >90 mL/min/1.73m2 . The eGFR declines with age. An eGFR of 60-89 may be normal in some populations, particularly the elderly, for whom the CKD-EPI formula has not been extensively validated. Use of the eGFR is not recommended in the following populations:< br/>
Rosa viduals with unstable creatinine concentration s, including patients and those with serious co-morbid conditions.<b r/>
Patie nts with extremes in muscle mass or diet.

The data above are obtained from the National Kidney Disease Education Program (NKDEP) which additionally recommends that when the eGFR is used in patients with extremes of body mass index for purposes of drug dosing, the eGFR should be multiplied by the estimated BMI. CHEM PANEL Calcium Lvl 7.9 8.5 - 10.5 07/03 /2015 [facility] CHEM PANEL CO2 26 24 - 32 05 /2015 [facility] CHEM PANEL Glucose Lvl 136 70 - 99 07/03 /2015 [facility] CHEM PANEL BUN 13 7 - 22 07/03 /2015 [facility] CHEM PANEL Potassium 4.1 3.5 - 5.1 07/03 Lvl /2015 [facility] CHEM PANEL Chloride Lvl 96 95 - 109 07/03 /2015 [facility] CHEM PANEL Sodium Lvl 132 135 - 145 07/03 /2015 [facility] CHEM PANEL Creatinine 0.83 0.50 - 07/03 Lvl 1.40 /2015 [facility] CHEM PANEL AGAP 14.1 10.0 - 07/03 MH 20.0 /2015 [facility] HEMATOLOGY Lymphocytes 0.7 1.0 - 5.5 07/03 MH # /2016 [facility] HEMATOLOGY Segs-Bands # 11.6 1.5 - 8.1 07/03 /2015 [facility] HEMATOLOGY Monocytes 2.7 2.0 - 12.0 07/03 /2015 [facility] HEMATOLOGY Lymphocytes 5.4 20.0 - 07/03 40.0 /2015 [facility] HEMATOLOGY Monocytes # 0.3 0.0 - 0.8 07/03 /2015 [facility] HEMATOLOGY Basophils 0.1 0.0 - 1.0 07/03 /2015 [facility] HEMATOLOGY Segs 91.8 45.0 - 07/03 75.0 /2015 [facility] HEMATOLOGY Platelet 172 133 - 450 07/03 /2015 [facility] HEMATOLOGY MCHC 33.4 32.0 - 07/03 36.0 /2015 [facility] HEMATOLOGY MPV 9.8 7.4 - 10.4 07/03 /2015 [facility] HEMATOLOGY MCV 92.4 80.0 - 07/03 94.0 /2015 [facility] HEMATOLOGY RDW 13.5 11.5 - 07/03 MH 14.5 /2015 [facility] HEMATOLOGY Hgb 11.7 14.0 - 07/03 MH 18.0 /2015 [facility] HEMATOLOGY MCH 30.9 27.0 - 07/03 31.0 /2015 [facility] HEMATOLOGY RBC 3.79 4.70 - 07/03 6.10 /2015 [facility] HEMATOLOGY Hct 35.0 42.0 - 07/03 54.0 /2015 [facility] HEMATOLOGY WBC 12.6 3.7 - 10.4 07/03 /2015 [facility] BACTERIAL - MRSA by PCR Negative 07/02 SEROLOGY (07/03/15 12:59 PM) /2015 [facility] Pathology Reports No Data Provided for This Section Diagnostic Reports Report Value Date Source Chest 1view DX Study: Chest 1view DX 07/04/2015 [facility] Clinical Indication: Tube placement/removal/reposition Comparison: None FINDINGS: Changes of median sternotomy and coronary artery bypass graft are seen. Cardiac silhouette is normal in size. Aortic arch calcification is seen. Numerous calcified pleural plaques throughout b ilateral lungs are noted. There is no pleural effusion or pneumothorax. 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 IMPRESSION: No acute cardiopulmonary disease. Numerous calcified pleural plaques throughout the bilateral lungs. SL: [id number] Consultation Notes No Data Provided for This Section Discharge Summaries No Data Provided for This Section History and Physicals No Data Provided for This Section Vital Signs Vital Sign Value Date Comments Source Respitory Rate 16 07/05/2015 [facility] Heart Rate 77 07/05/2015 [facility] Temperature Oral (F) 98.3 F 07/05/2015 [facility] Systolic (mm Hg) 145 07/05/2015 [facility] Diastolic (mm Hg) 86 07/05/2015 [facility] Respitory Rate 18 07/05/2015 [facility] Heart Rate 76 07/05/2015 [facility] Systolic (mm Hg) 163 07/05/2015 [facility] Diastolic (mm Hg) 82 07/05/2015 [facility] Temperature Oral (F) 97.7 F 07/05/2015 [facility] Heart Rate 85 07/05/2015 [facility] Temperature Oral (F) 97.2 F 07/05/2015 [facility] Systolic (mm Hg) 160 07/05/2015 [facility] Diastolic (mm Hg) 84 07/05/2015 [facility] Respitory Rate 16 07/05/2015 [facility] Weight 70.9 07/03/2015 [facility] Height 177.8 cm 07/02/2015 [facility] BMI Calculated 22.43 07/02/2015 [facility] Weight 70.909 07/02/2015 [facility] Encounters Location Location Encounter Encounter Reason Attending ADM DC Status Source Details Type Number For Provider Date Date Visit [facility] OBS [id number] Cristopher 07/02 07/04 [facility]2015 [facility] Patient [facility] Procedures Procedure Code Date Perfomer Comments Source Appendectomy [id number] [facility] Cataract extraction [id number] [facility] and insertion of intraocular lens Coronary [id number] [facility] arteriogram Coronary artery [id number] [facility] bypass grafts x 4 Femoral artery [id number] [facility] bypass Tonsillectomy [id number] [facility] Assessment and Plan Assessment and Plan Date Source Extracted from:Title: Clinical Document 07/05/2015 [facility] Author: Gregsoo Irineo Vincent DO Date: 07/03/15 Chief complaint: post op cervicle spine decompression HPI: 80y.o male presents to ICU s/p cervicle spine decompression. He has been extubated and is on room air. Hemodynamically stable. has a history of abestosis and COPD. He does see a international trade teacher in the out patient but cannot remeber [...] all negative besides those stated in the [facility] Physical Exam Vitals Tmp(F) Pulse BP RR [...] time exclusive of procedures is 33 min Plan of Care No Data Provided for This Section Social History Social History Date Source Social History TypeResponse 07/02/2015 [facility] Alcohol Current, Previous treatment: None. Smoking Status Current every day smoker; Type: Cigarettes; Tobacco use per day: 1; Ready to change: No; Concerns about tobacco use in household: No; Exposure to Tobacco Smoke None; Cigarette Smoking Last 365 Days Yes; Reg Smoking Cessation Counseling No Family History No Data Provided for This Section Advance Directives No Data Provided for This Section Functional Status No Data Provided for This Section
[2018-09-01] MEDS ORDERED: LEVALBUTEROL 1.25 MG/3 ML NEB ONE (20:37)
[2018-09-01] MEDS ORDERED: NA CHLORIDE 0.9% 0 ML ONE (20:37)
[2018-09-01 20:39] LABS: Absolute Lymphocytes (CBC) 2.1 K/uL (0.7-4.9); Basophils % 1.2 % (0-1.3); Lymphocytes % 22.3 % (15.3-44.8); MPV 9.7 fL (7.6-11.3); RBC Red Blood Cell Count 4.51 M/uL (4.33-5.43)
--- NOTE | 2018-09-01 20:46 | RAD REPORT ---
EXAM DESCRIPTION: CT - Head Brain Wo Cont - 09/01/2018 8:20 pm CLINICAL HISTORY: Fall, head injury COMPARISON: None. TECHNIQUE: Axial 5 mm thick images of the head were obtained without IV contrast. All CT scans are performed using dose optimization technique as appropriate and may include automated exposure control or mA/KV adjustment according to patient size. FINDINGS: No intracranial hemorrhage, mass, edema or shift of mid-line structures. No acute infarcti on changes seen. Atrophy and chronic ischemic changes are present. Ventricles are in proportion to vo lume loss. Physiologic calcifications are present. Patient has dense arterial tree calcifications. Mastoid air cells and visualized portions of the paranasal sinuses are clear. No acute bony findings. IMPRESSION: Mild to moderate atrophy and moderate chronic ischemic change. Ventricles are in proport ion to volume loss. No hemorrhage or acute intracranial finding. Chronic ischemic changes can mask nonhemorrhagic acute infarction. MR brain followup can be obtained if there is ongoing concern for acute ischemia.
[2018-09-01 20:48] LABS: BUN Blood Urea Nitrogen 11 mg/dL (7-18); Bicarbonate 33 mmol/L (21-32); Glucose Level 95 mg/dL (74-106); NT PRO-BNP 439 pg/mL (<450); Sodium Level 129 mmol/L (136-145); Troponin (Emerg Dept Use Only) < 0.02 ng/mL (0.0-0.045)
[2018-09-01 20:51] LABS: Potassium 2.8 mmol/L (3.5-5.1)
--- NOTE | 2018-09-01 21:24 | RAD REPORT ---
EXAM DESCRIPTION: [facility] Single View09/01/2018 8:54 pm CLINICAL HISTORY: Shortness of breath COMPARISON: June 2018 FINDINGS: The lungs appear clear of acute infiltrate. The heart is normal size. Postsurgical changes involve the chest. Extensive bilateral pleural calcifications unchanged IMPRESSION: No acute abnormalities displayed
--- NOTE | 2018-09-01 21:34 | EDPHYS ---
Physician Documentation [facility] Name: Rosa Isela Zavala Age: 83 yrs Sex: Male : 1935 Arrival Date: 09/01/2018 Time: 19:49 Bed 14 Private MD: ED Physician Elijah Zapien HPI: 09/01 19:58 This 83 yrs old Male presents to ER via Unassigned with complaints of rn possible fall, weakness. 19:58 Per EMS, neighbors called 911 because they were concerned he fell due to redness around rn left eye, patient denies fall, reports hasn't felt well for "awhile", decreased PO intake due to poor appetite, not drinking fluids, sob, and tingling to all 4 extremities. Denies chest pain/abd pain/vomiting/diarrhea. . Onset: The symptoms/episode began/occurred at an unknown time. Severity of symptoms: At their worst the symptoms were mild in the emergency department the symptoms are unchanged. It is unknown whether or not the patient has had similar symptoms in the past. The patient has not recently seen a physician. Historical: - Allergies: 20:04 No Known Allergies; tr5 - Home Meds: 20:04 prednisone 10 mg Oral tab once daily [Active]; hydrochlorothiazide 12.5 mg Oral tab tr5 once daily [Active]; Symbicort 160-4.5 mcg/actuation inhalation HFAA [Active]; clopidogrel 75 mg Oral tab 1 tab once daily [Active]; Combivent 20mmcg/100mcg Inhl aero [Active]; simvastatin 10 mg Oral tab 1 tab once daily [Active]; gabapentin 600 mg oral tab 3 times per day [Active]; aspirin 81 mg Oral TbEC 1 tab once daily [Active]; metoprolol tartrate 25 mg Oral tab 1 tab 2 times per day [Active]; bisacodyl 5 mg Oral TbEC 1 tab once daily [Active]; - PMHx: 20:04 CAD; COPD; spinal stenosis; tr5 - Immunization history:: Adult Immunizations up to date. - Social history:: Smoking status: unknown. - Family history:: not pertinent. - Ebola Screening: : No symptoms or risks identified at this time. - Hospitalizations: : No recent hospitalization is reported. ROS: 19:58 Constitutional: Negative for fever, chills, and weight loss, Eyes: Negative for injury, rn pain, redness, and discharge, Neck: Negative for injury, pain, and swelling, Cardiovascular: Negative for chest pain, palpitations, and edema, Respiratory: + sob Abdomen/GI: Negative for abdominal pain, nausea, vomiting, diarrhea, and constipation, MS/Extremity: Negative for injury and deformity, Skin: Negative for injury, rash, and discoloration, Neuro: Negative for headache, and seizure. Exam: 19:58 Constitutional: Thin male, no acute distress Head/Face: Normocephalic, atraumatic. rn Eyes: Left periorbital erythema with clear ocular drainage, + postsurigcal changes of left eye ENT: dry MM Neck: Trachea midline, no thyromegaly or masses palpated, and no cervical lymphadenopathy. Supple, full range of motion without nuchal rigidity, or vertebral point tenderness. No Meningismus. Cardiovascular: Regular rate and rhythm, no murmur Respiratory: Faint exp wheezing, no retractions, speaking full sentences Abdomen/GI: soft, non-tender MS/ Extremity: Pulses diminished but equal, no cyanosis. Neurovascular intact. Full, normal range of motion. Equal circumference. 1+ pitting edema ankles/feet Neuro: Awake and alert, GCS 15, oriented to person, place, time, and situation. Cranial nerves II-XII grossly intact. Motor strength 5/5 in all extremities. Sensory grossly intact. Cerebellar exam normal. Vital Signs: 19:56 BP 141 / 78; Pulse 75; Resp 19; Temp 98.2(O); Pulse Ox 95% on R/A; tr5 21:00 BP 128 / 76; Pulse 72; Resp 18; Pulse Ox 95% on R/A; tr5 22:00 BP 123 / 77; Pulse 75; Resp 20; Pulse Ox 96% on R/A; tr5 23:02 BP 126 / 75; Pulse 75; Resp 18; Pulse Ox 96% on R/A; tr5 MDM: 19:49 Patient medically screened. rn 21:30 Differential Diagnosis dehydration, UTI, anemia, pneumonia, chronic medical problems. rn Data reviewed: vital signs, nurses notes, lab test result(s), EKG, radiologic studies, CT scan, plain films, and as a result, I will discharge patient. Test interpretation: by ED physician or midlevel provider: plain radiologic studies, CXR negative for acute pneumonia or pneumothorax.. Counseling: I had a detailed discussion with the patient and/or guardian regarding: the historical points, exam findings, and any diagnostic results supporting the discharge/admit diagnosis, lab results, radiology results, the need for outpatient follow up, to return to the emergency department if symptoms worsen or persist or if there are any questions or concerns that arise at home. Response to treatment: the patient's symptoms have mildly improved after treatment, and as a result, I will discharge patient. Special discussion: I discussed with the patient/guardian in detail that at this point there is no indication for admission to the hospital. It is understood, however, that if the symptoms persist or worsen the patient needs to return immediately for re-evaluation. ED course: Caregiver at bedside, states patient hasn't been feeling well for some time, no acute or drastic changes, mainly decreased appetite, patient with normal WBC and procal, neg UA, no changes in CXR, neg ct head. + mild dehydration and hypokalemia, will dc home with return precautions.. 09/01 19:50 Order name: CBC with Diff 09/01 19:50 Order name: Basic Metabolic Panel 09/01 19:50 Order name: Urine Culture 09/01 19:50 Order name: Urine Microscopic Only 09/01 19:50 Order name: N-Terminal Pro-brain Natriuretic Peptide; Complete Time: 20:59 09/01 19:50 Order name: Troponin (emerg Dept Use Only); Complete Time: 20:59 09/01 19:50 Order name: XRAY Chest (1 view); Complete Time: 21: 09/01 19:50 Order name: Procalcitonin; Complete Time: 21:26 09/01 19:51 Order name: CBC with Automated Diff; Complete Time: 20:59 [facility] 09/01 19:51 Order name: Basic Metabolic Panel; Complete Time: 20:59 [facility] 09/01 19:51 Order name: Urine Culture [facility] 09/01 19:51 Order name: Urine Microscopic Only [facility] 09/01 21:32 Order name: Urine Dipstick--Ancillary (enter results) cm6 09/01 19:50 Order name: IV Start; Complete Time: 21:48 09/01 19:50 Order name: Urine Dipstick-Ancillary (obtain specimen); Complete Time: 21:39 rn 09/01 19:50 Order name: EKG; Complete Time: 19:51 rn 09/01 19:50 Order name: EKG - Nurse/Tech; Complete Time: 20:13 rn 09/01 19:58 Order name: CT Head Brain wo Cont; Complete Time: 20:59 rn Administered Medications: 20:57 Drug: Xopenex 1.25 mg Route: Inhalation; tr5 22:07 Follow up: Response: No adverse reaction tr5 20:58 Drug: NS 0.9% 500 ml Route: IV; Rate: bolus; Site: left antecubital; tr5 22:07 Follow up: IV Status: Completed infusion; IV Intake: 500ml tr5 21:30 Drug: Potassium Chloride 40 mEq Route: PO; tr5 22:07 Follow up: Response: No adverse reaction tr5 21:30 Drug: Potassium Chloride 20 mEq Route: IV; Rate: 1 calculated rate; Site: left tr5 antecubital; 23:30 Follow up: IV Status: Completed infusion; IV Intake: 100ml tr5 Disposition: 09/01/18 21:33 Discharged to Home. Impression: Hypokalemia, Dehydration, Conjunctivitis. - Condition is Stable. - Discharge Instructions: Dehydration, Adult, Hypokalemia. - Prescriptions for Erythromycin 5 mg/gram (0.5 %) Ophthalmic Ointment - apply 1 centimeter by OPHTHALMIC route 2-3 times daily for 7 days; 1 tube. - Medication Reconciliation Form, Thank You Letter, Antibiotic Education, Prescription Opioid Use form. - Follow up: Private Physician; When: As needed; Reason: Recheck today's complaints, Re-evaluation by your physician. - Problem is an ongoing problem. - Symptoms have improved. Signatures: Dispatcher [employer] EDMS Elijah Zapien MD MD rn Rodriguez, Tommie, RN RN tr5 Corrections: (The following items were deleted from the chart) 23:33 21:33 09/01/2018 21:33 Discharged to Home. Impression: Hypokalemia; Dehydration; tr5 Conjunctivitis. Condition is Stable. Forms are Medication Reconciliation Form, Thank You Letter, Antibiotic Education, Prescription Opioid Use. Follow up: Private Physician; When: As needed; Reason: Recheck today's complaints, Re-evaluation by your physician. Problem is an ongoing problem. Symptoms have improved. rn
--- NOTE | 2018-09-01 21:34 | ER ---
Nurse's Notes [facility] Name: Rosa Isela Zavala Age: 83 yrs Sex: Male : 1935 Arrival Date: 09/01/2018 Time: 19:49 Bed 14 Private MD: Diagnosis: Hypokalemia;Dehydration;Conjunctivitis Presentation: 09/01 19:56 Presenting complaint: EMS states: Pt's neighbors called EMS because they said that the tr5 pt had fallen because he has difficulty seeing and they were worried about him. Upon EMS arrival pt was hypotensive and tachycardic so they brought him to the ER. Transition of care: patient was not received from another setting of care. Onset of symptoms was September 01, 2018. Risk Assessment: Do you want to hurt yourself or someone else? Patient reports no desire to harm self or others. Initial Sepsis Screen: Does the patient meet any 2 criteria? No. Patient's initial sepsis screen is negative. Does the patient have a suspected source of infection? No. Patient's initial sepsis screen is negative. Care prior to arrival: Medication(s) given: Normal saline infusion, IV initiated. 20 GA, in the left antecubital area. 19:56 Method Of Arrival: EMS: [facility] tr5 19:56 Acuity: BEBO 3 tr5 Triage Assessment: 20:04 General: Appears uncomfortable, slender, Behavior is calm, cooperative, appropriate for tr5 age. Pain: Complains of pain in anterior aspect of left upper chest and left breast Pain does not radiate. Quality of pain is described as aching, pressure, Pain began gradually, 2-3 days ago. EENT: No signs and/or symptoms were reported regarding the EENT system. Neuro: Level of Consciousness is awake, alert, obeys commands, Oriented to person, place, time, Lamp Wirer are equal bilaterally. Cardiovascular: Reports chest pain, shortness of breath, Heart tones present Bruits absent Capillary refill < 3 seconds Thorax is concave Pulses are all present. Edema pitting to left ankle, left foot, left toes, right ankle, right foot and right toes. Respiratory: Reports shortness of breath at rest Airway is patent Trachea midline Respiratory effort is even, labored, Respiratory pattern is symmetrical, Breath sounds are clear bilaterally. GI: Abdomen is round Bowel sounds present X 4 quads. Reports loss of appetite. : No signs and/or symptoms were reported regarding the genitourinary system. Derm: No signs and/or symptoms reported regarding the dermatologic system. Skin is intact, Skin is dry, Skin is pink, warm \T\ dry. Skin temperature is warm. Musculoskeletal: Capillary refill < 3 seconds, Range of motion: intact in all extremities. Historical: - Allergies: 20:04 No Known Allergies; tr5 - Home Meds: 20:04 prednisone 10 mg Oral tab once daily [Active]; hydrochlorothiazide 12.5 mg Oral tab tr5 once daily [Active]; Symbicort 160-4.5 mcg/actuation inhalation HFAA [Active]; clopidogrel 75 mg Oral tab 1 tab once daily [Active]; Combivent 20mmcg/100mcg Inhl aero [Active]; simvastatin 10 mg Oral tab 1 tab once daily [Active]; gabapentin 600 mg oral tab 3 times per day [Active]; aspirin 81 mg Oral TbEC 1 tab once daily [Active]; metoprolol tartrate 25 mg Oral tab 1 tab 2 times per day [Active]; bisacodyl 5 mg Oral TbEC 1 tab once daily [Active]; - PMHx: 20:04 CAD; COPD; spinal stenosis; tr5 - Immunization history:: Adult Immunizations up to date. - Social history:: Smoking status: unknown. - Family history:: not pertinent. - Ebola Screening: : No symptoms or risks identified at this time. - Hospitalizations: : No recent hospitalization is reported. Screenin:14 Abuse screen: Denies threats or abuse. Nutritional screening: No deficits noted. tr5 Tuberculosis screening: No symptoms or risk factors identified. Fall Risk Fall in past 12 months (25 points). Secondary diagnosis (15 points) impaired mobility, IV access (20 points). Ambulatory Aid- Crutches/Cane/Walker (15 pts). Gait- Normal/Bed Rest/Wheelchair (0 pts) Mental Status- Oriented to own ability (0 pts). Total Bowen Fall Scale indicates High Risk Score (45 or more points). Assessment: 19:56 Reassessment: No changes from previously documented assessment. see triage assessment. tr5 21:20 Reassessment: No changes from previously documented assessment. Patient and/or family tr5 updated on plan of care and expected duration. Pain level reassessed. Patient is alert, oriented x 3, equal unlabored respirations, skin warm/dry/pink. 22:12 Reassessment: Pt awaiting completion of IV medications prior to discharge. tr5 23:04 Reassessment: No changes from previously documented assessment. Patient and/or family tr5 updated on plan of care and expected duration. Pain level reassessed. Patient is alert, oriented x 3, equal unlabored respirations, skin warm/dry/pink. Vital Signs: 19:56 BP 141 / 78; Pulse 75; Resp 19; Temp 98.2(O); Pulse Ox 95% on R/A; tr5 21:00 BP 128 / 76; Pulse 72; Resp 18; Pulse Ox 95% on R/A; tr5 22:00 BP 123 / 77; Pulse 75; Resp 20; Pulse Ox 96% on R/A; tr5 23:02 BP 126 / 75; Pulse 75; Resp 18; Pulse Ox 96% on R/A; tr5 ED Course: 19:49 Patient arrived in ED. rn 19:49 Elijah Zapien MD is Attending Physician. rn 19:55 Walter Louis, DIMAS is Primary Nurse. tr5 19:56 Patient has correct armband on for positive identification. Placed in gown. Bed in low tr5 position. Call light in reach. 19:56 Arm band placed on. tr5 19:58 EKG completed in triage. Results shown to MD. tr5 19:59 Triage completed. tr5 20:00 Pulse ox on. NIBP on. tr5 20:10 Noise minimized. Lights dimmed. Warm blanket given. tr5 20:20 Maintain EMS IV. Dressing intact. Site clean \T\ dry. Gauge \T\ site: 20 G Left AC. tr 5 20:20 Initial lab(s) drawn, by ED staff, sent to lab. tr5 20:21 CT Head Brain wo Cont In Process Unspecified. EDMS 20:56 XRAY Chest (1 view) In Process Unspecified. EDMS 21:00 Urine collected: clean catch specimen, clear. tr5 23:32 No provider procedures requiring assistance completed. IV discontinued. tr5 Administered Medications: 20:57 Drug: Xopenex 1.25 mg Route: Inhalation; tr5 22:07 Follow up: Response: No adverse reaction tr5 20:58 Drug: NS 0.9% 500 ml Route: IV; Rate: bolus; Site: left antecubital; tr5 22:07 Follow up: IV Status: Completed infusion; IV Intake: 500ml tr5 21:30 Drug: Potassium Chloride 40 mEq Route: PO; tr5 22:07 Follow up: Response: No adverse reaction tr5 21:30 Drug: Potassium Chloride 20 mEq Route: IV; Rate: 1 calculated rate; Site: left tr5 antecubital; 23:30 Follow up: IV Status: Completed infusion; IV Intake: 100ml tr5 Intake: 22:07 IV: 500ml; Total: 500ml. tr5 23:30 IV: 100ml; Total: 600ml. tr5 Outcome: 21:33 Discharge ordered by . rn 23:32 Discharged to home via wheelchair. 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 medication usage, Demonstrated understanding of instructions, follow-up care, medications, Prescriptions given X 1. 23:33 Patient left the ED. tr5 Signatures: Dispatcher [employer] EDMS Elijah Zapien MD MD rn Rodriguez, Tommie, RN RN tr5 Corrections: (The following items were deleted from the chart) 20:24 19:56 General: tr5 tr5 23:04 22:06 IV Status: Completed infusion; IV Intake: 100ml tr5 tr5
[2018-09-01 21:38] LABS: Urine Blood NEGATIVE (NEG); Urine Glucose NEGATIVE (NEG); Urine Protein NEGATIVE (NEG)
[2018-09-01] MEDS ORDERED: POTASSIUM CL SA 10 MEQ TAB PO ONE (21:39)
[2018-09-01] MEDS ORDERED: KCL 20 MEQ/100 mL IVPB 20 MEQ/100 ML BAG IV ONE (21:40)
[2018-09-01 21:46] LABS: Urine Bacteria <20 /HPF (NONE SEEN); Urine Culture Reflex Order NOT NEEDED; Urine Mucus 1+ /HPF (NONE SEEN); Urine RBC <5 /HPF (NONE SEEN)
[2018-09-01 23:40] VITALS: TEMP 98.2
[2018-09-01 23:43] VITALS: O2SAT 96
[2018-09-01 23:44] VITALS: BP 126/75
--- NOTE | 2018-09-03 06:32 | EKG ---
Test Date: 2018-09-01 Test Time: 19:52:45 Small Business Sales Representative: LIANA MEASUREMENT RESULTS: Intervals: Rate: 73 WY: 168 QRSD: 96 QT: 428 QTc: 471 [place]: P: 74 W[place]: 168 QRS: 9 T: 77 INTERPRETIVE STATEMENTS: Normal sinus rhythm Low voltage QRS Inferior infarct, age undetermined Abnormal ECG Compared to ECG 07/05/2018 11:19:52 Myocardial infarct finding now present Ventricular premature complex(es) no longer present T-wave abnormality no longer present Electronically Signed On 09-03-18 06:31:07 CDT by Salvador Church
== END 2018-09-01 23:33 | disposition home or self-care (01) ==
LOC: ER 19:47
DX: E87.6 Hypokalemia (principal); E86.0 Dehydration; H10.9 Unspecified conjunctivitis; I25.10 Atherosclerotic heart disease of native coronary artery without angina pectoris; J44.9 Chronic obstructive pulmonary disease, unspecified; Z79.82 Long term (current) use of aspirin
CPT/HCPCS: 36415; 70450; 71045; 80048; 81003; 81015; 83880; 84145; 84484; 85025; 87086; 87088; 93005; 96361; 96365; 96366; 99284

== ENCOUNTER 2018-12-05 09:25 | Emergency (ER) | payer OTHER ==
--- NOTE | 2018-12-05 10:16 | EKG ---
Test Date: 2018-12-05 Test Time: 09:51:46 Medical Billing Manager: MELANY MEASUREMENT RESULTS: Intervals: Rate: 80 NH: 182 QRSD: 94 QT: 398 QTc: 459 [place]: P: 36 NH: 182 QRS: 30 T: 117 INTERPRETIVE STATEMENTS: Normal sinus rhythm Low voltage QRS Nonspecific T wave abnormality Abnormal ECG Compared to ECG 09/01/2018 19:52:45 T-wave abnormality now present Myocardial infarct finding no longer present Electronically Signed On 12-05-18 10:15:51 CDT by Amrik Posada
--- NOTE | 2018-12-05 10:45 | RAD REPORT ---
EXAM DESCRIPTION: CT - Abdomen Pelvis W Contrast - 12/05/2018 10:29 am CLINICAL HISTORY: GI BLEED, abdominal pain COMPARISON: July 2015 CT TECHNIQUE: Biphasic, helical CT imaging of the abdomen and pelvis was performed following 100 ml non -ionic IV contrast. No oral contrast administered. All CT scans are performed using dose optimization technique as appropriate and may include automated exposure control or mA/KV adjustment according to patient size. FINDINGS: Small left pleural effusion is present. Focal parenchymal opacification in the medial righ t lung base proximally 3 cm in diameter has not clearly changed. Patient has very dense calcified ple ural plaquing changes. No cardiomegaly or pericardial effusion. The liver, spleen, and pancreas show no suspicious findings. Gallbladder and biliary tree are also wi thout suspicious finding. Symmetric renal function is seen with no hydronephrosis or suspicious renal mass. No pyelonephritis o r acute parenchymal process. No bladder abnormalities. No adrenal abnormalities. Patient has small hiatal hernia. No acute gastric finding. No dilated small bowel loops or focal smal l bowel abnormality. Appendix is not clearly defined. Appendicitis is not suspected. Patient has a la rge amount of stool distending the colon from cecum to splenic flexure. Moderately large stool volume and contrast mixture is present in the left side of the colon. Patient was not administered contrast for this examination. This may be from a remote diagnostic study. The rectum is distended. No free air, free fluid or inflammatory stranding. No hernia, mass or bulky lymphadenopathy. Pelvic floor laxity is present. Dense arterial tree calcifications are present. Iliac stenoses are ev ident. 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 Fluid retention is present in the subcutaneous fatty tissues of the abdomen and pelvis. IMPRESSION: Constipation pattern with a large amount of stool filling and distending the colon. Stoo l volume in the left side of the colon is mixed with contrast material, presumably from a prior outsi de study. No recent imaging at this facility utilizing PO contrast. No bowel obstruction, free air or surgically emergent finding. Fluid retention in the subcutaneous fatty tissues of the abdomen and pelvis is well is a small left p leural effusion.
[2018-12-05] MEDS ORDERED: PANTOPRAZOLE 40 MG INJ ONE (11:19)
[2018-12-05 11:32] LABS: MPV 8.4 fL (7.6-11.3)
[2018-12-05 11:47] LABS: Absolute Lymphocytes (CBC) 1.8 K/uL (0.7-4.9); Basophils % 0.9 % (0-1.3); Hematocrit 23.9 % (39.6-49.0); Lymphocytes % 22.6 % (15.3-44.8); RBC Red Blood Cell Count 2.89 M/uL (4.33-5.43)
[2018-12-05 12:09] LABS: Protime INR 1.3
[2018-12-05 13:44] LABS: ALT/SGPT 11 U/L (12-78); AST/SGOT 13 U/L (15-37); Albumin 1.9 g/dL (3.4-5.0); Alkaline Phosphatase 108 U/L (45-117); BUN Blood Urea Nitrogen 15 mg/dL (7-18); Bicarbonate 33 mmol/L (21-32); Bilirubin Direct 0.2 mg/dL (0-0.2); Bilirubin Total 0.2 mg/dL (0.2-1.0); Glucose Level 108 mg/dL (74-106); Lipase 50 U/L (73-393); Sodium Level 135 mmol/L (136-145)
--- NOTE | 2018-12-05 14:01 | ER ---
Nurse's Notes [facility] Name: Rosa Isela Zavala Age: 83 yrs Sex: Male : 1935 Arrival Date: 12/05/2018 Time: 09:30 Bed 4 Private MD: Diagnosis: Gastrointestinal hemorrhage, unspecified Presentation: 12/05 09:34 Presenting complaint: EMS states: + occult stool test and drop in Hgl (7.7 now 7.2). ss Patient c/o fatigue. Transition of care: patient was not received from another setting of care. Onset of symptoms is unknown. Risk Assessment: Do you want to hurt yourself or someone else? Patient reports no desire to harm self or others. Initial Sepsis Screen: Does the patient meet any 2 criteria? No. Patient's initial sepsis screen is negative. Does the patient have a suspected source of infection? No. Patient's initial sepsis screen is negative. Care prior to arrival: None. 09:34 Method Of Arrival: EMS: [facility] 09:34 Acuity: BEBO 3 ss Historical: - Allergies: 09:34 No Known Allergies; ss - PMHx: 09:34 CAD; COPD; spinal stenosis; Anemia; insomnia; BPH; Pneumonia; Atrial Fib; Glaucoma; ss constipation; - Immunization history:: Adult Immunizations unknown. - Social history:: Smoking status: Patient/guardian denies using tobacco. - Ebola Screening: : No symptoms or risks identified at this time. Screenin:48 Abuse screen: Denies threats or abuse. Denies injuries from another. Nutritional ph screening: No deficits noted. Tuberculosis screening: No symptoms or risk factors identified. Fall Risk No fall in past 12 months (0 pts). Secondary diagnosis (15 points) impaired mobility, IV access (20 points). Ambulatory Aid- None/Bed Rest/Nurse Assist (0 pts). Gait- Weak (10 pts.). Mental Status- Oriented to own ability (0 pts). Total Bowen Fall Scale indicates High Risk Score (45 or more points). Fall prevention measures have been instituted. Side Rails Up X 2 Frequent Obs/Assessments Occuring As available patient and family educated on Fall Prevention Program and Strategies. Assessment: 10:00 General: Appears in no apparent distress. slender, Behavior is calm, cooperative, ph appropriate for age. Pain: Complains of pain in buttocks and R heel. Neuro: Level of Consciousness is awake, alert, obeys commands, Oriented to person, place, time, situation, Reports dizziness, weakness in "all over". Cardiovascular: Reports fatigue, lightheadedness, Denies chest pain, nausea, shortness of breath, Capillary refill < 3 seconds in bilateral fingers Patient's skin is warm and dry. Rhythm is regular. Respiratory: Airway is patent Respiratory effort is even, unlabored, Respiratory pattern is regular, symmetrical. GI: Patient currently denies abdominal pain, nausea, vomiting. Derm: Skin is fragile, is thin, Skin is pale, Decubitus located on right heel(s) right buttocks. Musculoskeletal: Circulation, motion, and sensation intact. 11:37 Reassessment: Patient appears in no apparent distress at this time. Patient and/or ph family updated on plan of care and expected duration. Pain level reassessed. Patient is alert, oriented x 3, equal unlabored respirations, skin warm/dry/pink. Pt resting quietly, continues to c/o pain to R heel, family at bedside, VSS, awaiting lab results. 12:30 Reassessment: Patient appears in no apparent distress at this time. Patient and/or ph family updated on plan of care and expected duration. Pain level reassessed. Patient is alert, oriented x 3, equal unlabored respirations, skin warm/dry/pink. 13:30 Reassessment: Patient appears in no apparent distress at this time. Patient and/or ph family updated on plan of care and expected duration. Pain level reassessed. Patient is alert, oriented x 3, equal unlabored respirations, skin warm/dry/pink. 14:30 Reassessment: Patient appears in no apparent distress at this time. Patient and/or ph family updated on plan of care and expected duration. Pain level reassessed. Patient is alert, oriented x 3, equal unlabored respirations, skin warm/dry/pink. 15:30 Reassessment: Patient appears in no apparent distress at this time. Patient and/or ph family updated on plan of care and expected duration. Pain level reassessed. Patient is alert, oriented x 3, equal unlabored respirations, skin warm/dry/pink. 16:45 Reassessment: Patient appears in no apparent distress at this time. Patient and/or ph family updated on plan of care and expected duration. Pain level reassessed. Patient is alert, oriented x 3, equal unlabored respirations, skin warm/dry/pink. Report called to Shakila COCHRAN at [facility]. 18:10 Reassessment: Patient appears in no apparent distress at this time. Patient and/or ph family updated on plan of care and expected duration. Pain level reassessed. Patient is alert, oriented x 3, equal unlabored respirations, skin warm/dry/pink. [facility] at bedside, report given Yaneth EMT-P. Vital Signs: 09:46 BP 103 / 58; Pulse 79; Resp 18; Temp 97.8; Pulse Ox 100% on 2 lpm NC; ph 11:00 BP 112 / 55; Pulse 73; Resp 18; Pulse Ox 99% on 2 lpm NC; ph 12:37 BP 94 / 52; Pulse 73; Resp 16; Pulse Ox 98% on 2 lpm NC; ph 13:45 BP 116 / 81; Pulse 76; Resp 18; Pulse Ox 98% on 2 lpm NC; ph 15:05 BP 127 / 65; Pulse 81; Resp 16; Pulse Ox 99% on 2 lpm NC; ph 16:00 BP 118 / 70; Pulse 77; Resp 16; Temp 97.4; Pulse Ox 96% on 1 lpm NC; ph 17:00 BP 127 / 64; Pulse 81; Resp 20; Temp 97.5; Pulse Ox 96% on 1 lpm NC; ph 18:00 BP 122 / 68; Pulse 78; Resp 20; Temp 97.6; Pulse Ox 97% on 1 lpm NC; ph ED Course: 09:30 Patient arrived in ED. ss 09:32 Yuri Patton NP is PHCP. pm1 09:32 Aleksandr Tristan MD is Attending Physician. pm1 09:33 Sole Connors, DIMAS is Primary Nurse. ph 09:34 Arm band placed on right wrist. ss 09:35 Triage completed. ss 09:49 Patient has correct armband on for positive identification. Placed in gown. Bed in low ph position. Call light in reach. Side rails up X2. mosquito sprayer on. Pulse ox on. NIBP on. Door closed. Noise minimized. Warm blanket given. Pillow given. Head of bed elevated. 09:55 EKG done, by systems technologist. reviewed by Yuri Patton NP. at1 10:30 CT Abd/Pelvis - IV Contrast Only In Process Unspecified. EDMS 10:45 Inserted saline lock: 22 gauge in left wrist, using aseptic technique. ph 18:00 No provider procedures requiring assistance completed. Patient transferred, IV remains ph in place. Administered Medications: 11:10 Drug: ProTONIX 40 mg Route: IVP; Site: left wrist; ph 12:19 Follow up: Response: No adverse reaction ph 16:00 Drug: Xopenex 1.25 mg Route: Inhalation; ph 16:10 Drug: Benadryl 25 mg Route: IVP; Site: left wrist; ph 16:30 Follow up: Response: No adverse reaction ph 16:10 Drug: Solu-CORTEF 50 mg Route: IVP; Site: left wrist; ph 16:30 Follow up: Response: No adverse reaction ph 16:10 Drug: Tylenol 650 mg Route: PO; ph 16:30 Follow up: Response: No adverse reaction ph Medication: 16:15 Blood products: PRBCs X 1 unit given. ph Outcome: 13:59 ER care complete, transfer ordered by . pm1 18:15 Patient left the ED. ph 18:15 Transferred by ground EMS [facility]. to [facility], Transfer form ph completed. X-rays sent w/ patient. 18:15 Condition: stable 18:15 Instructed on the need for admit. Signatures: Dispatcher [employer] EDMS Guadalupe Reese RN RN ss Gonzales, Amanda, lift builder whole EKG Tat1 Sole Connors RN RN ph Marinas, Patrick, NP BIG MACHINE CONSULTANT pm1
--- NOTE | 2018-12-05 14:01 | EDPHYS ---
Physician Documentation [facility] Name: Rosa Isela Zavala Age: 83 yrs Sex: Male : 1935 Arrival Date: 12/05/2018 Time: 09:30 Bed 4 Private MD: ED Physician Aleksandr Tristan HPI: 12/05 09:51 This 83 yrs old Male presents to ER via EMS with complaints of Abnormal Lab pm1 Results, Anemia. 09:51 The patient presents to the emergency department anemia, fatigue, and positive stool pm1 guaiac test this AM at senior care. Abdominal pain: none is appreciated. Modifying factors: The symptoms are alleviated by nothing, the symptoms are aggravated by nothing. Associated signs and symptoms: Pertinent positives: loose stools, Pertinent negatives: chest pain, fever, shortness of breath, vomiting. Historical: - Allergies: 09:34 No Known Allergies; ss - PMHx: 09:34 CAD; COPD; spinal stenosis; Anemia; insomnia; BPH; Pneumonia; Atrial Fib; Glaucoma; ss constipation; - Immunization history:: Adult Immunizations unknown. - Social history:: Smoking status: Patient/guardian denies using tobacco. - Ebola Screening: : No symptoms or risks identified at this time. ROS: 09:51 Eyes: Negative for injury, pain, redness, and discharge, ENT: Negative for injury, pm1 pain, and discharge, Neck: Negative for injury, pain, and swelling. 09:51 Cardiovascular: Negative for chest pain, palpitations, and edema, Respiratory: Negative for shortness of breath, cough, wheezing, and pleuritic chest pain. 09:51 Back: Negative for injury and pain, : Negative for injury, bleeding, discharge, and swelling, MS/Extremity: Negative for injury and deformity, Skin: Negative for injury, rash, and discoloration, Neuro: Negative for headache, weakness, numbness, tingling, and seizure. 09:51 Constitutional: Positive for fatigue, Negative for fever. 09:51 Abdomen/GI: Positive for diarrhea, positive stool guaiac , Negative for abdominal pain, nausea and vomiting, constipation. Exam: 09:51 Constitutional: This is a well developed, well nourished patient who is awake, alert, pm1 and in no acute distress. Head/Face: Normocephalic, atraumatic. ENT: Nares patent. No nasal discharge, no septal abnormalities noted. Tympanic membranes are normal and external auditory canals are clear. Oropharynx with no redness, swelling, or masses, exudates, or evidence of obstruction, uvula midline. Mucous membranes moist. Neck: Trachea midline, no thyromegaly or masses palpated, and no cervical lymphadenopathy. Supple, full range of motion without nuchal rigidity, or vertebral point tenderness. No Meningismus. 09:51 Chest/axilla: Normal chest wall appearance and motion. Nontender with no deformity. No lesions are appreciated. Cardiovascular: Regular rate and rhythm with a normal S1 and S2. No gallops, murmurs, or rubs. No pulse deficits. Respiratory: Lungs have equal breath sounds bilaterally, clear to auscultation and percussion. No rales, rhonchi or wheezes noted. No increased work of breathing, no retractions or nasal flaring. Abdomen/GI: Soft, non-tender, with normal bowel sounds. No distension or tympany. No guarding or rebound. No evidence of tenderness throughout. Back: No spinal tenderness. No costovertebral tenderness. Full range of motion. MS/ Extremity: Pulses equal, no cyanosis. Neurovascular intact. Full, normal range of motion. 09:51 Eyes: Conjunctiva: pale, bilaterally. 09:51 Skin: Appearance: normal except for affected area, Color: pale, Temperature: normal temperature, Moisture: normal moisture, decubiti dressing applied to right heel and bandage applied to right buttocks. 09:51 Neuro: Orientation: is normal, Motor: is normal, moves all fours. 10:03 Abdomen/GI: Rectal exam: rectal tone normal, Stool: guaiac positive, loose, dark brown, pm1 Feeder Operator Automatic: ELLEN COCHRAN. Vital Signs: 09:46 BP 103 / 58; Pulse 79; Resp 18; Temp 97.8; Pulse Ox 100% on 2 lpm NC; ph 11:00 BP 112 / 55; Pulse 73; Resp 18; Pulse Ox 99% on 2 lpm NC; ph 12:37 BP 94 / 52; Pulse 73; Resp 16; Pulse Ox 98% on 2 lpm NC; ph 13:45 BP 116 / 81; Pulse 76; Resp 18; Pulse Ox 98% on 2 lpm NC; ph 15:05 BP 127 / 65; Pulse 81; Resp 16; Pulse Ox 99% on 2 lpm NC; ph 16:00 BP 118 / 70; Pulse 77; Resp 16; Temp 97.4; Pulse Ox 96% on 1 lpm NC; ph 17:00 BP 127 / 64; Pulse 81; Resp 20; Temp 97.5; Pulse Ox 96% on 1 lpm NC; ph 18:00 BP 122 / 68; Pulse 78; Resp 20; Temp 97.6; Pulse Ox 97% on 1 lpm NC; ph MDM: 09:32 Patient medically screened. pm1 13:58 Data reviewed: vital signs. Data interpreted: Pulse oximetry: on room air is 98 %. pm1 Interpretation: normal. Counseling: I had a detailed discussion with the patient and/or guardian regarding: the historical points, exam findings, and any diagnostic results supporting the discharge/admit diagnosis, lab results, radiology results, the need to transfer to another facility, [facility] does not immediately have the required specialist. 14:19 ED course: Patient and family preference to go to [facility]. pm1 14:43 Physician consultation: Vincent Anna was contacted at 14:44, regarding regarding pm1 transfer, patient's condition, and will see patient. 16:05 ED course: Patient with history of COPD, reports feeling of anxiety and shortness of pm1 breath. Gave Xopenex and patient's symptoms resolved. 12/05 09:32 Order name: Basic Metabolic Panel; Complete Time: 13:52 pm1 12/05 09:32 Order name: CBC with Diff; Complete Time: 12:04 pm1 12/05 09:32 Order name: Creatinine for Radiology; Complete Time: 13:52 pm1 12/05 09:32 Order name: Hepatic Function; Complete Time: 13:52 pm1 12/05 09:32 Order name: Lipase; Complete Time: 13:52 pm1 12/05 09:32 Order name: Type And Screen pm1 12/05 09:32 Order name: PT-INR; Complete Time: 12:50 pm1 12/05 09:59 Order name: CT Abd/Pelvis - IV Contrast Only; Complete Time: 11:11 pm1 12/05 10:00 Order name: Occult Blood--Ancillary; Complete Time: 11:42 bd 12/05 14:19 Order name: Bb Add On bd 12/05 14:24 Order name: Packed RBCs (Additional Unit) [facility] 12/05 15:07 Order name: ABO/RH no charge; Complete Time: 15:26 EDAR 12/05 09:32 Order name: IV Saline Lock; Complete Time: 10:56 pm1 12/05 09:32 Order name: Labs collected and sent; Complete Time: 11:32 pm1 12/05 09:59 Order name: EKG; Complete Time: 10:00 pm1 12/05 09:59 Order name: EKG - Nurse/Tech; Complete Time: 10:54 pm1 12/05 14:13 Order name: Transfuse; Complete Time: 16:19 pm1 Administered Medications: 11:10 Drug: ProTONIX 40 mg Route: IVP; Site: left wrist; ph 12:19 Follow up: Response: No adverse reaction ph 16:00 Drug: Xopenex 1.25 mg Route: Inhalation; ph 16:10 Drug: Benadryl 25 mg Route: IVP; Site: left wrist; ph 16:30 Follow up: Response: No adverse reaction ph 16:10 Drug: Solu-CORTEF 50 mg Route: IVP; Site: left wrist; ph 16:30 Follow up: Response: No adverse reaction ph 16:10 Drug: Tylenol 650 mg Route: PO; ph 16:30 Follow up: Response: No adverse reaction ph Disposition: 12/06 07:05 Co-signature as Attending Physician, Aleksandr Tristan MD I agree with the assessment and jacqui plan of care. Disposition: 12/05/18 13:59 Transfer ordered to [facility]. Diagnosis is Gastrointestinal hemorrhage, unspecified. - Reason for transfer: Higher level of care. - Accepting physician is [facility]. - Condition is Stable. - Problem is new. - Symptoms have improved. Signatures: Dispatcher [employer] [facility] Aleksandr Tristan MD MD cha Smirch, Shelby, RN RN ss Hall, Patricia, RN RN ph Marinas, Patrick, NP DRESS OPERATOR pm1 Corrections: (The following items were deleted from the chart) 12/05 18:15 13:59 12/05/2018 13:59 Transfer ordered to [facility]. Diagnosis is ph Gastrointestinal hemorrhage, unspecified. Reason for transfer: Higher level of care. Accepting physician is [facility]. Condition is Stable. Problem is new. Symptoms have improved. pm1
[2018-12-05] MEDS ORDERED: HYDROCORTISONE SUC 100 MG INJ ONE (15:27)
[2018-12-05] MEDS ORDERED: DIPHENHYDRAMINE 50 MG/ML VIAL ONE (15:28)
[2018-12-05] MEDS ORDERED: ACETAMINOPHEN 325 MG TABLET ONE (15:28)
[2018-12-05] MEDS ORDERED: NA CHLORIDE 0.9% 500 ML ONE (15:28)
[2018-12-05] MEDS ORDERED: LEVALBUTEROL 1.25 MG/3 ML NEB ONE (17:01)
[2018-12-05 18:56] VITALS: TEMP 97.8
[2018-12-05 19:02] VITALS: BP 127/65; O2SAT 99
== END 2018-12-05 18:15 | disposition short-term general hospital (02) ==
LOC: ER 09:25
DX: K92.2 Gastrointestinal hemorrhage, unspecified (principal); R53.83 Other fatigue; J44.9 Chronic obstructive pulmonary disease, unspecified
CPT/HCPCS: 93005; 85025; 80048; 36415; 86900; 86850; 85610; 86901; 80076; 82272; 83690; 74177; 36430; 96375; 96374; 99285; Q9967; J1200; C9113; P9016; J7040; J1720